=== PATIENT | male | born 1965 | race Caucasian/White ===

== ENCOUNTER → 2017-07-01 | Outpatient (CLI) | payer MEDICARE, OTHER ==
--- NOTE | 2017-07-01 07:52 | CT ---
EXAMINATION TYPE: CT chest w con DATE OF EXAM: 07/01/2017 COMPARISON: 10/09/2013 HISTORY: Chest pains CT DLP: 538 mGycm Automated exposure control for dose reduction was used. CONTRAST: CT scan of the chest is performed with IV Contrast, patient injected with 100 mL of Omnipaque 300. FINDINGS: LUNGS: Noted are scattered predominantly calcified pulmonary nodules compatible with remote granuloma tous disease. No concerning noncalcified nodule seen. No evidence for pulmonary mass. Hyperinflation compatible with COPD. There is no pleural effusion or pneumothorax seen. The tracheobronchial tree i s patent. MEDIASTINUM: There are no greater than 1 cm hilar or mediastinal lymph nodes. No pericardial effusi on is seen. Thoracic aorta is of normal caliber. The heart is not enlarged. UPPER ABDOMEN: No significant abnormality appreciated. OTHER: Nonspecific thyroid nodularity. Consider ultrasound correlation. IMPRESSION: 1. COPD. 2. Remote granulomatous disease.
== END | disposition home or self-care (01) ==
LOC: RADCTMAIN 06:41
PROVIDERS: ATTEND Family Medicine
DX: J44.9 Chronic obstructive pulmonary disease, unspecified (principal); R53.83 Other fatigue; R53.81 Other malaise; R63.4 Abnormal weight loss; Z72.0 Tobacco use
CPT/HCPCS: 71260; Q9967

== ENCOUNTER 2017-08-07 10:11 | Day surgery (SDC) | payer MEDICARE, OTHER ==
[2017-08-06 12:32] VITALS: BMI 25.7
[~2017-08-07 10:11] MED LIST: LACTATED RINGERS 1,000 ML IV SCH
[2017-08-07 10:29] VITALS: RESP 16; TEMP 98
[2017-08-07] MEDS ORDERED: LIDOCAINE 1% 20 ML VIAL (10MG/ML) FOR IV START INTRADERMA ONE (10:33)
[2017-08-07] MEDS ORDERED: PROPOFOL 10 MG/ML 20 ML VIAL IV ONE (10:44)
--- NOTE | 2017-08-07 10:54 | P.PCN ---
Date of Procedure: 08/07/17 Procedure(s) Performed: BRIEF HISTORY: Patient is a 52-year-old, pleasant, white male, scheduled for an upper endoscopy as a part of surveillance of Quick's esophagus. He denies any heartburn, dysphagia or odynophagia. PROCEDURE PERFORMED: Esophagogastroduodenoscopy with biopsy. PREOPERATIVE DIAGNOSIS: Surveillance of Quick's esophagus. IV sedation per anesthesia. PROCEDURE: After informed consent was obtained, the patient was brought into the endoscopy unit. IV sedation was administered by Anesthesia under continuous monitoring. Initially the Olympus GIF-140 video endoscope was inserted into the mouth. Esophagus intubated without any difficulty. It was gradually advanced into the stomach and duodenum and carefully examined. The bulb and the second part of the duodenum appeared normal. The scope at this time was withdrawn to the stomach, adequately insufflated with air, and upon careful examination, mucosa of the antrum, body, cardia and the fundus appeared normal. The scope was then withdrawn into the esophagus. Small hiatal hernia noted. The GE junction was located at 42 cm from the incisors. There was short segment Quick's esophagus extending from 40-42 cm from the incisors and this was biopsied. The rest of the esophagus appeared normal. There were no erosions or ulcerations seen and the patient tolerated the procedure well. IMPRESSION: 1. Short segment Quick's esophagus status post biopsy. 2. Small hiatal hernia. RECOMMENDATIONS: The findings of this examination were discussed with the patient as well as a family. She was advised to follow with the biopsy results. If the biopsy shows Quick's esophagus he can have a repeat upper endoscopy in 2 years.
[2017-08-07 11:30] VITALS: BP 125/73; PULSE 59
== END 2017-08-07 11:59 | disposition home or self-care (01) ==
LOC: ORWHC2ENDO 10:11
PROVIDERS: ATTEND Internal Medicine Gastroenterology
DX: K22.70 Barrett's esophagus without dysplasia (principal); K44.9 Diaphragmatic hernia without obstruction or gangrene; K21.9 Gastro-esophageal reflux disease without esophagitis; E78.5 Hyperlipidemia, unspecified; J44.9 Chronic obstructive pulmonary disease, unspecified; F39 Unspecified mood [affective] disorder; Z79.1 Long term (current) use of non-steroidal anti-inflammatories (NSAID); Z79.899 Other long term (current) drug therapy
CPT/HCPCS: 88305; 43239; J2704

== ENCOUNTER → 2017-08-17 | Outpatient (CLI) | payer MEDICARE, OTHER ==
--- NOTE | 2017-08-18 14:34 | PE ---
EXAMINATION TYPE: PET CT fusion whole body DATE OF EXAM: 08/17/2017 COMPARISON: CT chest 07/01/2017 Prior PET/CT: None HISTORY: Unknown primary TECHNIQUE: Following the intravenous administration of 14.97 mCi of F-18 FDG, whole body images are performed from the skull base to the midthigh. Images are reviewed on the computer in the coronal, a xial, and sagittal planes. Reconstructed rotating images are created on independent workstation and reviewed on the computer. A localization and attenuation correction CT is performed in conjunction with the PET scan. DLP: 445.66 mGycm SCAN: Initial Blood glucose: 92 mg/dL Average Mediastinum SUV: 1.2 Average Liver SUV: 1.7 FINDINGS: NECK: No abnormal uptake THORAX: No abnormal uptake ABDOMEN: No abnormal uptake PELVIS: No abnormal uptake OSSEOUS STRUCTURES: No abnormal uptake LOCALIZATION CT: Few shotty lymph nodes are in the neck. Enlarged lymphadenopathy is not identified. The ascending thoracic aorta at the level of main pulmonary artery is 3.4 cm. The main pulmonary kal ry the bifurcation is 2.5 cm. No suspicious axillary adenopathy is evident. Coronary artery calcifica tion is noted. No enlarged mediastinal adenopathy or hilar adenopathy is evident. Beam hardening sahara fact from the patient's arms the abdomen. Suspicious pelvic or inguinal adenopathy is not identified. There are a few small inguinal lymph nodes present bilaterally. COMPARISON: Tiny calcified granuloma is in the anterior right middle lobe, image 100 series 3. IMPRESSION: 1. No suspicious uptake to suggest neoplasm. 2. No suspicious uptake within the visualized lymph nodes.
== END | disposition home or self-care (01) ==
LOC: RADPETMAIN 09:31
PROVIDERS: ATTEND Family Medicine
DX: R59.0 Localized enlarged lymph nodes (principal)
CPT/HCPCS: 78816; A9552

== ENCOUNTER → 2018-01-09 | Outpatient (CLI) | payer MEDICARE, OTHER ==
--- NOTE | 2018-01-09 15:52 | US ---
EXAMINATION TYPE: US thyroid st tissue head/neck DATE OF EXAM: 01/09/2018 COMPARISON: 08/12/2017 CLINICAL HISTORY: 52-year-old male R59.0 enlarged lymphnodes,E04.1 Thyroid nodule. Technique: Multiple sonographic images of the thyroid gland are obtained. FINDINGS: Right Lobe: 4.6 x 1.7 x 2.3 cm Overall Parenchyma: heterogenous Left Lobe: 4.3 x 1.9 x 1.7 cm Overall Parenchyma: heterogeneous Isthmus Thickness: 0.6 cm NODULES RIGHT: # of nodules measured on right: 1 1. 1.7 X 0.9 x 1.5 cm hypoechoic heterogenous nodule at the lower pole with well-defined margins. T his nodule is wider than tall and shows intranodular vascularity. Prior size: 1.7 x 0.8 x 1.3 cm LEFT: # of nodules measured on left: 2 1. 0.6 X 0.5 x 0.7 cm cystic nodule at the upper pole with well-defined margins. This nodule is wid er than tall and shows no intranodular vascularity. Prior size: 0.6 x 0.5 x 0.6 cm 2. 0.9 X 0.8 x 0.9 cm hypoechoic solid nodule at the lower pole with well-defined margins; interrupt ed peripheral calcification. This nodule is taller than wide and shows intranodular vascularity. Prior size: 0.9 x 0.9 x 0.9 cm ISTHMUS: # of nodules measured in the isthmus: 0 Bilateral neck scanned. Left lymph node appearing lesion seen - 2.3 x 0.9 x 1.1 cm. IMPRESSION: 1. Dominant nodule in the right lower pole measures 1.7 x 1.5 cm versus 1.7 x 1.3 cm, previously. Not significantly changed. 2. A second solid nodule in the left lower pole measures 9 mm, unchanged. 3. Prominent lymph node along the left side of the neck. Cortex is thickened and it is borderline in size (1.1 cm short axis). This can be followed clinically. Area can be re-imaged if any growth is not ed.
== END | disposition home or self-care (01) ==
LOC: RADUSWWP 14:02
PROVIDERS: ATTEND Family Medicine
DX: E04.2 Nontoxic multinodular goiter (principal)
CPT/HCPCS: 76536

== ENCOUNTER → 2018-07-01 | Outpatient (CLI) | payer MEDICARE, OTHER ==
--- NOTE | 2018-07-01 16:31 | US ---
EXAMINATION TYPE: US thyroid st tissue head/neck DATE OF EXAM: 07/01/2018 COMPARISON: Prior thyroid ultrasound January 09, 2018 CLINICAL HISTORY: R59.0 Localized enlarged lymph nodes. GLAND SIZE: Right Lobe: 4.8 x 1.9 x 1.8 cm Overall Parenchyma: homogenous Left Lobe: 5.5 x 1.7 x 1.8 cm Overall Parenchyma: homogeneous Isthmus Thickness: 0.4 cm NODULES RIGHT: # of nodules measured on right: 1 1. 1.5 X 1.2 x 0.8 cm mix nodule at the lower pole with well-defined margins; . This nodule is wid er than tall and shows intranodular vascularity. Prior size: 1.7 x 0.9 x 1.3 cm LEFT: # of nodules measured on left: 2 1. 0.6 X 0.5 x 0.5 cm cyst nodule at the upper pole with well-defined margins; . This nodule is w ider than tall and shows intranodular vascularity. Prior size: 0.6 x 0.5 x 0.7 cm 2. 1.0 X 0.9 x 0.9 cm solid nodule at the lower pole with well-defined margins; calcified rim. This nodule is taller than wide and shows intranodular vascularity. Prior size: 0.9 x 0.8 x 0.9 cm ISTHMUS: # of nodules measured in the isthmus: 0 Bilateral neck scanned, no evidence of lymphadenopathy. Stable bilateral nodules. IMPRESSION: Overall stable findings, stable bilateral nodules without new suspicious nodules identified
== END | disposition home or self-care (01) ==
LOC: RADUSWWP 15:59
PROVIDERS: ATTEND Family Medicine
DX: E04.1 Nontoxic single thyroid nodule (principal)
CPT/HCPCS: 76536

== ENCOUNTER → 2018-09-01 | Outpatient (CLI) | payer MEDICARE, OTHER ==
--- NOTE | 2018-09-02 10:27 | XR ---
EXAMINATION TYPE: XR chest 2V, XR ribs RT DATE OF EXAM: 09/01/2018 COMPARISON: Prior chest 02/27/2018 HISTORY: Rib pain, right lower lateral rib pain TECHNIQUE: Frontal and lateral views of the chest are obtained on 3 images, 4 views of the right rib s. FINDINGS: There is no focal air space opacity, pleural effusion, or pneumothorax seen. The cardiac silhouette size is stable, small. There is hyperinflation suggesting underlying COPD. The lower thora cic vertebral body shows anterior wedge compression as on prior at T12. No evident displaced rib frac ture. IMPRESSION: No acute cardiopulmonary process. Bone scan could be performed for increased sensitivity as indicated.
== END | disposition home or self-care (01) ==
LOC: RADXRMAIN 18:43
PROVIDERS: ATTEND Family Medicine
DX: M95.4 Acquired deformity of chest and rib (principal)
CPT/HCPCS: 71046

== ENCOUNTER → 2019-02-04 | Outpatient (CLI) | payer MEDICARE, OTHER ==
--- NOTE | 2019-02-04 14:26 | XR ---
EXAMINATION TYPE: XR cervical spine comp DATE OF EXAM: 02/04/2019 TECHNIQUE: Frontal, lateral, oblique, swimmers, and open mouth view of the cervical spine are obtaine d. HISTORY: Cervical Radiculopathy M54.12 neck pain. COMPARISON: CT cervical spine September 13, 2014. FINDINGS: The cervical spine is visualized in its entirety from C1 thru the top of T1 level, there i s persistent levoconvex scoliotic curvature centered near cervicothoracic junction without evidence o f acute fracture or dislocation. Exaggerated cervical curvature on lateral images noted. The pre-jenaro tebral soft tissue appears within normal limits. The C1-C2 articulation is within normal limits on t he open mouth view. There is some ossific fusion at C2-C3 level redemonstrated similar to prior. Vert ebral body heights are maintained. Mild disc space narrowing C6-C7 level is redemonstrated. The obli que images are within normal limits. Overlying soft tissue is unremarkable. IMPRESSION: As above, no significant change from recent CT 2013.
== END ==
LOC: RADXRMAIN 13:54
PROVIDERS: ATTEND Physical Medicine & Rehabilitation
DX: M48.02 Spinal stenosis, cervical region (principal); M41.82 Other forms of scoliosis, cervical region
CPT/HCPCS: 72050

== ENCOUNTER → 2019-07-02 | Outpatient (CLI) | payer MEDICARE, OTHER ==
--- NOTE | 2019-07-03 08:05 | US ---
EXAMINATION TYPE: US thyroid st tissue head/neck DATE OF EXAM: 07/02/2019 COMPARISON: 07/01/2018 CLINICAL HISTORY: E04.2 Thyroid Nodule. GLAND SIZE: Right Lobe: 4.4 x 2.1 x 1.5 cm Overall Parenchyma: homogenous Left Lobe: 4.9 x 1.8 x 1.9 cm Overall Parenchyma: homogeneous Isthmus Thickness: 0.5 cm NODULES RIGHT: # of nodules measured on right: 1 1. 1.6 X 0.8 x 1.3 cm hypoechoic solid nodule at the lower pole with well-defined margins. This no dule is wider than tall and shows no intranodular vascularity. Prior size: 1.5 x 1.2 x 0.8 cm LEFT: # of nodules measured on left: 2 1. 0.7 X 0.6 x 0.7 cm anechoic cystic nodule at the upper pole with well-defined margins. This nod ule is wider than tall and shows no intranodular vascularity. Prior size: 0.6 x 0.5 x 0.5 cm 2. 0.8 X 0.8 x 0.8 cm hypoechoic solid nodule at the lower pole with well-defined margins; peripher al calcification. This nodule is taller than wide and shows intranodular vascularity. Prior size: 1.0 x 0.9 x 0.9 cm ISTHMUS: # of nodules measured in the isthmus: 0 Bilateral neck scanned, prominent lymph node noted on left measuring 1.4 x 1.1 x 1.1cm IMPRESSION: 1. Similar size of the bilateral thyroid nodules in comparison to the exam of 2018. 2. Solitary very mildly enlarged lymph node adjacent to the left lobe of the thyroid. This could be r eactive.
== END | disposition home or self-care (01) ==
LOC: RADUSWWP 15:43
PROVIDERS: ATTEND Family Medicine
DX: E04.1 Nontoxic single thyroid nodule (principal); E04.9 Nontoxic goiter, unspecified
CPT/HCPCS: 76536

== ENCOUNTER 2019-09-30 13:56 | Emergency (ER) | payer MEDICARE, OTHER ==
--- NOTE | 2019-09-30 13:54 | US ---
EXAMINATION TYPE: US venous doppler duplex LE LT DATE OF EXAM: 09/30/2019 1:30 PM COMPARISON: NONE CLINICAL HISTORY: M79.605 Pain in left leg. Left leg pain, left ankle edema for 2 days SIDE PERFORMED: left TECHNIQUE: The lower extremity deep venous system is examined utilizing real time linear array sonog alexandre with graded compression, doppler sonography and color-flow sonography. VESSELS IMAGED: External Iliac Vein (EIV) Common Femoral Vein Deep Femoral Vein Greater Saphenous Vein * Femoral Vein Popliteal Vein Small Saphenous Vein * Proximal Calf Veins (* superficial vessels) Grayscale, color doppler, spectral doppler imaging performed of the deep veins of the left lower extr emity Left Leg: +Positive for DVT left popliteal vein IMPRESSION: Positive acute deep venous thrombosis of the left popliteal vein. Certified Orthoptist note from [facility] -spoke with regarding positive results, patient escorted to the ER
[2019-09-30 14:04] VITALS: BP 117/73; PULSE 50; RESP 18; TEMP 97.7
[2019-09-30] MEDS ORDERED: APIXABAN 5 MG TAB PO STA (14:15)
--- NOTE | 2019-09-30 14:15 | ED ---
Extremity Problem HPI - General Chief complaint: Extremity Problem,Nontraumatic Stated complaint: Blood Clot-sent by US Source: patient Mode of arrival: wheelchair Limitations: no limitations - History of Present Illness Initial comments: 54-year-old male presenting for positive outpatient ultrasound for DVT. Patient states that approximately 2-3 days ago he noticed swelling of the left leg and comparison the right and a slight discomfort of the left posterior knee. Patient states which is primary care provider where he was sent for an ultrasound to rule out deep venous thrombosis which returned positive. Patient was sent over to the emergency department for further evaluation directly from ultrasound. Patient denies known history of cancer although he is currently b eing worked up for lymphadenopathy. Patient is every day smoker. He denies any recent surgeries he denies chest pain shortness of breath. Patient denies any pain with deep inspiration denies any recent travel hospitalizations history of DVT or pulmonary embolism's, familial clotting disorders or personal history, recent fractures exogenous hormone use. Patient denies use of anticoagulation therapy. Patient denies any recent melanotic stools or bright red blood per rectum. Patient denies any other complaints. He states aside from the swelling/slight left leg discomfort he feels like his usual self. Upon arrival patient oxygenating well on RA, HR within acceptable limits. No tachycardia. - Related Data Home Medications Medication Instructions Recorded Confirmed ALPRAZolam [Xanax] 1 mg PO TID PRN 09/13/14 09/30/19 Simvastatin [Zocor] 40 mg PO QAM 09/13/14 09/30/19 HYDROcodone/APAP 10-325MG [[place] 1 tab PO QID PRN 09/03/16 09/30/19 10-325] Ibuprofen [Motrin] 800 mg PO TID PRN 08/06/17 09/30/19 FLUoxetine HCL [PROzac] 20 mg PO TID 10/17/17 09/30/19 Omeprazole [PriLOSEC] 20 mg PO AC-BRKFST 10/17/17 09/30/19 QUEtiapine [SEROquel] 200 mg PO HS 09/30/19 09/30/19 lamoTRIgine [LaMICtal] 100 mg PO BID 09/30/19 09/30/19 Previous Rx's Medication Instructions Recorded Apixaban [Eliquis Starter Pack 0 mg PO DIRECTED 30 Days #1 pack 09/30/19 (for VTE)] Allergies Allergy/AdvReac Type Severity Reaction Status Date / Time No Known Allergies Allergy Verified 09/30/19 14:01 Review of Systems ROS Statement: Those systems with pertinent positive or pertinent negative responses have been documented in the HPI. ROS Other: All systems not noted in ROS Statement are negative. Past Medical History Past Medical History: Chest Pain / Angina, COPD, GERD/Reflux, Hyperlipidemia, Osteoarthritis (OA) Additional Past Medical History / Comment(s): Hx Quick's Esophagus. , Back and knee pain, States slow heart rate and Short of breath with exertion-may need pacemaker in the future-having testing done by Dr. Rai (Cardiology)., States lump behind right ear that is painful and occasional tingling right fingers. History of Any Multi-Drug Resistant Organisms: None Reported Past Surgical History: Orthopedic Surgery Additional Past Surgical History / Comment(s): RIGHT KNEE ARTHROSCOPY, LEFT KNEE SURGERY X2, COLONOSCOPY, EGD. Past Anesthesia/Blood Transfusion Reactions: Previous Problems w/ Anesthesia Additional Past Anesthesia/Blood Transfusion Reaction / Comment(s): WOKE UP DURING SURGERY., CLAUSTROPHOBIC Past Psychological History: Anxiety, Bipolar, Depression Smoking Status: Current every day smoker Past Alcohol Use History: None Reported Past Drug Use History: None Reported - Past Family History Mother Family Medical History: Cancer Additional Family Medical History / Comment(s): LUNG AND BREAST CANCER General Exam - General Exam Comments Initial Comments: General: The patient is awake and alert, in no distress, and does not appear a cutely ill. Eye: Pupils are equal, round and reactive to light, extra-ocular movements are intact. No nystagmus. There is normal conjunctiva bilaterally. No signs of icterus. Ears, nose, mouth and throat: There are moist mucous membranes and no oral lesions. Neck: The neck is supple, there is no tenderness or JVD. Cardiovascular: There is a regular rate and rhythm. No murmur, rub or gallop is appreciated. Respiratory: Lungs are clear to auscultation, respirations are non-labored, breath sounds are equal. No wheezes, stridor, rales, or rhonchi. Musculoskeletal: Normal ROM, no tenderness. Strength 5/5. Sensation intact. DP pulses equal bilaterally 2+. Neurological: A&O x 3. CN II-XII intact grossly, There are no obvious motor or sensory deficits. Coordination appears grossly intact. Speech is normal. Skin: Skin is warm and dry and no rashes or lesions are noted. Left LE swelling, nonpitting of the left leg in comparisoin with the right, tenderness of the popliteal fossa, no pain out of proportion, bruising or pallor. Patient able to weight bear. No swellin gof the right LE. No UE swelling. Psychiatric: Cooperative, appropriate mood & affect, normal judgment. Limitations: no limitations Course Vital Signs 09/30/19 13:59 Temperature 97.7 F Pulse Rate 50 L Respiratory 18 Rate Blood Pressure 117/73 O2 Sat by Pulse 98 Oximetry Medical Decision Making - Medical Decision Making 54yo male sent from ultrasound for deep venous thrombosis. There is a popliteal vein thrombosis., There is no evidence of complicating process. No CP/SOB, pain out of proportion, extreme swelling or pallor. Patient has no additional complaints, discussed case with Dr. Paris at this time we feel patient is stable for discharge with initiation of novel anticoagulation therapy. I contacted patient PCP Dr. Mccurdy who is agreeable with discharge and outpatient f/u tomorrow for further evaluation into causes including r/o malignancy. Return parameters, risk of bleeding and signs PE/worsening DVT were discussed at length with patient. In addition I discussed the importance of adherence to anticoagulation regimen. Patient verbalized understanding he is agreeable prefers discharge at this time. Disposition Clinical Impression: Left leg DVT, Left leg swelling Disposition: HOME SELF-CARE Condition: Good Instructions (If sedation given, give patient instructions): Deep Vein Thrombosis (ED) Additional Instructions: Please use medication as discussed. Please follow-up with family doctor in the next 2 days, recommend thorough evaluation to ensure cause is not malignancy, possible hematology follow-up if felt appropriate from primary care provider. Please return to emergency room if the symptoms increase or worsen or for any other concerns. Prescriptions: Apixaban [Eliquis Starter Pack (for VTE)] 0 mg PO DIRECTED 30 Days #1 pack Is patient prescribed a controlled substance at d/c from ED?: No Referrals: Di Mccurdy MD [Primary Care Provider] - 1-2 days Time of Disposition: 14:17
== END 2019-09-30 14:36 | disposition home or self-care (01) ==
LOC: EC 13:56
DX: I82.432 Acute embolism and thrombosis of left popliteal vein (principal); R59.0 Localized enlarged lymph nodes; K21.9 Gastro-esophageal reflux disease without esophagitis; E78.5 Hyperlipidemia, unspecified; M19.90 Unspecified osteoarthritis, unspecified site; F31.9 Bipolar disorder, unspecified; F41.9 Anxiety disorder, unspecified; F17.200 Nicotine dependence, unspecified, uncomplicated; Z79.1 Long term (current) use of non-steroidal anti-inflammatories (NSAID); Z79.899 Other long term (current) drug therapy
CPT/HCPCS: 99283

== ENCOUNTER → 2019-10-02 | Outpatient (CLI) | payer MEDICARE, OTHER ==
--- NOTE | 2019-10-02 09:35 | US ---
EXAMINATION TYPE: US thyroid st tissue head/neck DATE OF EXAM: 10/02/2019 COMPARISON: Thyroid ultrasound dated 07/02/2019 CLINICAL HISTORY: R59.0 Localized enlarged lymph nodes. Enlarged lymph node, follow up from prior ult rasound 07/06 TECHNIQUE/FINDINGS: Multiple lymph nodes noted bilateral neck. Largest on left = 2.4 x 1.2 x 1.1cm and largest on right = 3.6 x 1.0 x 1.6cm. The largest on the left on the prior examination of 07/02/2019 measured 1.4 x 1.1 x 1.1 cm. IMPRESSION: Bilateral cervical lymph nodes although are only mildly enlarged in short axis have demo nstrated interval enlargement from the prior. CT neck w con could be considered for further evaluatio n or possible consideration for fine-needle aspiration.
== END | disposition home or self-care (01) ==
LOC: RADUSWWP 08:49
PROVIDERS: ATTEND Nurse Practitioner
DX: R59.0 Localized enlarged lymph nodes (principal)
CPT/HCPCS: 76536

== ENCOUNTER → 2019-10-09 | Outpatient (CLI) | payer MEDICARE, OTHER ==
--- NOTE | 2019-10-11 18:35 | CT ---
EXAMINATION TYPE: CT soft tissue neck w con DATE OF EXAM: 10/09/2019 COMPARISON: Correlation ultrasound 10/02/2019 and 07/02/2019 HISTORY: 54-year-old male thyroid nodule TECHNIQUE: Contiguous axial scanning of the soft tissues of the neck performed with IV Contrast, michael ent injected with 100 mL of Isovue 300. Coronal/sagittal reconstructions performed. CT DLP: 468.70 mGycm Automated exposure control for dose reduction was used. FINDINGS: Upper thorax reported separately. With attention to the thyroid gland, there is a 1.5 cm hypodense nodule within the right lobe (seen a s a mixed, spongiform nodule measuring 1.7 cm on the 07/02/2019 ultrasound). A peripherally calcified 9 mm nodule in the left lobe was present back in 2013 suggesting a benign etiology. The submandibular glands are satisfactory. Parotid glands are atrophic. Visualized intracranial structures show hypoplastic A1 segment left anterior cerebral artery. Visuali zed orbits and globes and mastoid air cells are clear. Trace mucosal thickening posteromedial left ma xillary sinus. Leftward nasal septal deviation. Nasopharynx is clear. Nodular hypertrophy of the lingual tonsils. Otherwise, the oropharynx is clear. Prevertebral soft tissues and epiglottis appear within normal limits. Glottic and subglottic structures as well as the tracheal column are clear. There is a mildly enlarged right upper cervical lymph node, axial image 61 and coronal image 33 measu ring 1.5 cm short axis. Borderline to mildly enlarged 1.1 cm short axis lower left cervical lymph node at the level of the th yroid gland. Otherwise, scattered nonenlarged cervical lymph nodes are present on both sides of the neck. Levoconvex scoliosis centered along the cervicothoracic junction. IMPRESSION: 1. A 1.5 CM HYPODENSE NODULE IN THE RIGHT LOBE LIKELY CORRESPONDS TO THE 1.7 CM MIXED NODULE SEEN ON 07/02/2019 ULTRASOUND. A PERIPHERALLY CALCIFIED 9 MM NODULE IN THE LEFT LOBE WAS PRESENT BACK IN 2013 COMPATIBLE WITH A BENIGN ETIOLOGY. 2. A MILDLY ENLARGED 1.5 CM SHORT AXIS RIGHT UPPER CERVICAL LYMPH NODE. 3. ADDITIONAL BORDERLINE TO MILDLY ENLARGED 1.1 CM SHORT AXIS LOWER LEFT CERVICAL LYMPH NODE AT THE L EVEL OF THE THYROID GLAND. FINDINGS MAY BE REACTIVE/POST INFLAMMATORY. CONSIDER ULTRASOUND TO ENSURE STABILITY/RESOLUTION.
--- NOTE | 2019-10-11 18:50 | CT ---
EXAMINATION TYPE: CT ChestAbdPelvis w con DATE OF EXAM: 10/09/2019 COMPARISON: 10/17/2017 HISTORY: 54-year-old male Unprovoked DVT LT knee TECHNIQUE: Contiguous axial scanning of the chest, abdomen, and pelvis performed with IV Contrast, pa tient injected with 100 mL of Isovue 300. Delayed images through the kidneys were obtained. Coronal/s agittal reconstructions performed. CT DLP: 1547 mGycm Automated exposure control for dose reduction was used. FINDINGS: CHEST: Hypodense nodule right lobe of the thyroid gland was present back in 2017 compatible with a benign et iology. Peripherally calcified nodule in the left lobe was also present at that time compatible with a benign etiology. Lower left cervical lymph node measures 1.2 cm, unchanged from 2017. Heart normal size without pericardial effusion. Mild coronary vessel calcifications. Aorta normal caliber with conventional arch vessel branching anatomy. No thoracic lymphadenopathy by CT size criteria. Evaluation of the lungs show stable calcified granuloma anterior right midlung, stable 5 mm anterior left midlung pulmonary nodule, axial image 26, stable 4 mm lateral left midlung pulmonary nodule, axi al image 28 Clinical calcified granulomatous in the lung bases, axial image 53, and a noncalcified 6 mm medial ri ght basilar pulmonary nodule, axial image 51, all stable from 10/17/2017 compatible with a benign ramos ology. No consolidation or pleural effusion. ABDOMEN: No focal liver lesion. Mild prominence of the bile duct is unchanged from 2017. All bladder, adrenal glands, kidneys with bilateral extrarenal pelves, and spleen as well as pancreas all appear within normal limits. No dilated small bowel, free fluid, or free air. No mesenteric or retroperitoneal lymphadenopathy. Oral contrast has progressed into the distal transverse colon. Moderate stool in the right side of th e colon. Additional moderate stool in the sigmoid colon. No pericolonic inflammatory change. PELVIS: Bladder is urine distended measuring up to 13.7 cm. Prostate gland measures 5.0 cm wide. Scattered pr ominent bilateral inguinal lymph nodes measure up to 1.1 cm short axis, not significantly changed fro m 2017. No progressive pelvic lymphadenopathy. BONES: Mild degenerative changes at the hips. Facet arthropathy with left-sided L5 pars defect and grade 1 a nterolisthesis L5-S1. Mild anterior wedging at T12 is unchanged from 2017. Accentuated mid thoracic k yphosis. Increased AP chest dimension. No osseous destructive process. IMPRESSION: 1. THE 2 THYROID NODULES ARE STABLE BACK TO 10/17/2017 SUGGESTING BENIGN ETIOLOGY. 2. PROMINENT LEFT LOWER CERVICAL LYMPH NODE MEASURED 1.2 CM IS ALSO STABLE. 3. NUMEROUS BILATERAL PULMONARY NODULES MEASURING UP TO 6 MM, ALL STABLE BACK TO 2017. SOME ARE CALCI FIED SUGGESTING PRIOR GRANULOMATOUS DISEASE. 4. PROMINENT BUT NONENLARGED BILATERAL INGUINAL LYMPH NODES MEASURING UP TO 1.1 CM SHORT AXIS, STABLE BACK TO 10/17/2017. 5. LEFT-SIDED L5 PARS DEFECT WITH GRADE 1 ANTEROLISTHESIS OF L5-S1.
== END | disposition home or self-care (01) ==
LOC: RADCTMAIN 14:28
PROVIDERS: ATTEND Family Medicine
DX: E04.1 Nontoxic single thyroid nodule (principal); R59.0 Localized enlarged lymph nodes; R91.8 Other nonspecific abnormal finding of lung field
CPT/HCPCS: 70491; 71260; 74177; Q9967

== ENCOUNTER 2019-12-15 12:20 | Day surgery (SDC) | payer MEDICARE, OTHER ==
[2019-12-15 13:07] VITALS: RESP 16; TEMP 98.1
[2019-12-15] MEDS ORDERED: ALPRAZolam 0.5 MG TAB PO STA (13:29)
[2019-12-15 14:52] VITALS: BP 112/73; PULSE 60
--- NOTE | 2019-12-15 16:14 | US ---
EXAMINATION TYPE: US biopsy lymph node DATE OF EXAM: 12/15/2019 HISTORY: Left neck adenopathy. FINDINGS: Maximal barrier technique was utilized. The skin overlying a suitable path to the patient' s left supraclavicular node was localized with ultrasound and the overlying skin prepped and draped. Ultrasound was utilized with sterile technique. Lidocaine was used for local anesthesia. A skin ni ck was made with a scalpel. An 20-gauge needle was advanced under direct ultrasound guidance and cor e specimen obtained of the left neck node, additional pass was made using similar technique. Specime n submitted in formalin to Pathology. Following the procedure, hemostasis achieved and the patient i s discharged in stable condition without complication. IMPRESSION:STATUS POST ULTRASOUND GUIDED CORE BIOPSY LEFT SUPRACLAVICULAR NODE, PATHOLOGY IS PENDING. THIS PROCEDURE IS PERFORMED BY THE UNDERSIGNED.
== END 2019-12-15 14:45 | disposition home or self-care (01) ==
LOC: RADPROMAIN 12:20
PROVIDERS: ATTEND Internal Medicine Hematology & Oncology
DX: R59.0 Localized enlarged lymph nodes (principal)
CPT/HCPCS: 38505; 76942; 88305; 88342

== ENCOUNTER 2019-12-16 17:25 | Observation (INO) | payer MEDICARE, OTHER ==
[2019-12-16] MEDS ORDERED: NITROGLYCERIN OINT 1 INCH/GM PACKET TOPICAL STA (18:03)
[2019-12-16] MEDS ORDERED: SODIUM CHLORIDE 0.9% 500 ML 500 ML IV STA (18:03)
[2019-12-16] MEDS ORDERED: ASPIRIN 81 MG PO STA (18:03)
[2019-12-16] MEDS ORDERED: KETOROLAC 60 MG/2 ML VIAL IVP STA (18:04)
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
--- NOTE | 2019-12-16 18:48 | XR ---
EXAMINATION TYPE: XR chest 2V DATE OF EXAM: 12/16/2019 COMPARISON: 09/01/2018 HISTORY: Rib pain TECHNIQUE: 2 views FINDINGS: Heart is normal. Lungs are clear of infiltrate. There is no pleural effusion. There are no hilar masses. There are chest leads. There is mild pulmonary hyperinflation. IMPRESSION: No active cardiopulmonary disease. There is probably COPD. No change compared to old exam .
[2019-12-16 19:17] LABS: Basophils # (A) 0.2 k/uL (0-0.2); Basophils % (A) 2 %; Eosinophils # (A) 0.1 k/uL (0-0.7); Eosinophils % (A) 2 %; HCT 48.2 % (39.0-53.0); HGB 15.6 gm/dL (13.0-17.5); Lymphocytes # (A) 2.1 k/uL (1.0-4.8); Lymphocytes % (A) 29 %; MCH 30.3 pg (25.0-35.0); MCHC 32.3 g/dL (31.0-37.0); MCV 93.7 fL (80.0-100.0); Mean Platelet Volume 7.2; Monocytes # (A) 0.4 k/uL (0-1.0); Monocytes % (A) 5 %; Neutrophils # (A) 4.4 k/uL (1.3-7.7); Neutrophils % (A) 61 %; Platelet Count 232 k/uL (150-450); RBC 5.14 m/uL (4.30-5.90); RDW 12.8 % (11.5-15.5); WBC 7.2 k/uL (3.8-10.6)
[2019-12-16 19:30] LABS: Partial Thromboplastin Time 23.2 sec (22.0-30.0); Prothrombin Time 10.5 sec (9.0-12.0)
[2019-12-16 19:41] LABS: ALT 15 U/L (4-49); AST 18 U/L (17-59); African American GFR (CKD) >90 (>60 ml/min/1.73 sqM); Albumin 4.2 g/dL (3.5-5.0); Alkaline Phosphatase 46 U/L (38-126); Anion Gap 6 mmol/L; Blood Urea Nitrogen 15 mg/dL (9-20); Calcium 9.2 mg/dL (8.4-10.2); Carbon Dioxide 27 mmol/L (22-30); Chloride 107 mmol/L (98-107); Glucose 74 mg/dL (74-99); Magnesium 2.1 mg/dL (1.6-2.3); Non-African American GFR(CKD) >90 (>60 ml/min/1.73 sqM); Potassium 4.2 mmol/L (3.5-5.1); Sodium 140 mmol/L (137-145); Total Bilirubin 0.5 mg/dL (0.2-1.3); Total Protein 6.9 g/dL (6.3-8.2)
[2019-12-16] MEDS ORDERED: NITROGLYCERIN SL TABS 0.4 MG TAB SUBLINGUAL PRN (20:16)
[2019-12-16] MEDS ORDERED: HEPARIN SODIUM,PORCINE 5,000 UNIT/ML 1 ML VIAL IV ONE (20:21)
[2019-12-16] MEDS ORDERED: HEPARIN SOD,PORK IN 0.45% NACL 25,000 UNIT in 0.45% NACL 1 250ML.BAG IV SCH (20:30)
[2019-12-16] MEDS ORDERED: PANTOPRAZOLE 40 MG/10 ML VIAL IVP SCH (21:00)
[2019-12-16] MEDS ORDERED: HEPARIN SODIUM,PORCINE 5,000 UNIT/ML 1 ML VIAL IV PRN (21:27)
[2019-12-16] MEDS ORDERED: ALPRAZolam 1 MG TAB PO PRN (22:57)
[2019-12-16] MEDS ORDERED: IBUPROFEN 800 MG TAB PO PRN (22:57)
[2019-12-16] MEDS: GABAPENTIN 400 MG CAP PO SCH (23:38)
[2019-12-16] MEDS: NICOTINE 21MG/24HR PATCH TRANSDERM SCH (23:38)
[2019-12-16] MEDS: HYDROcodone/APAP 10-325MG 1 EACH TAB PO PRN (23:38)
[2019-12-17] MEDS: NITROGLYCERIN OINT 1 INCH/GM PACKET TOPICAL SCH ×2 (00:19→04:25)
[2019-12-17 04:18] LABS: Cholesterol 151 mg/dL (<200); HDL Cholesterol 42 mg/dL (40-60); LDL Cholesterol,Calculated 95 mg/dL (0-99); Triglycerides 69 mg/dL (<150)
[2019-12-17] MEDS: HYDROcodone/APAP 10-325MG 1 EACH TAB PO PRN ×2 (04:38→10:31)
[2019-12-17 07:43] VITALS: TEMP 98
[2019-12-17] MEDS: IPRATROPIUM 0.5 MG/2.5 ML NEBU INHALATION SCH ×2 (07:47→12:18)
[2019-12-17] MEDS ORDERED: SYMBICORT 80-4.5 MCG INHALER INHALATION SCH ×2 (08:00)
[2019-12-17] MEDS: GABAPENTIN 400 MG CAP PO SCH (08:08)
[2019-12-17] MEDS: NICOTINE 21MG/24HR PATCH TRANSDERM SCH (08:09)
[2019-12-17 08:15] VITALS: RESP 18
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
[2019-12-17] MEDS ORDERED: ASPIRIN 325 MG TAB PO SCH (09:00)
[2019-12-17] MEDS ORDERED: buPROPion SR 100 MG TABLET.ER PO SCH (09:00)
[2019-12-17] MEDS ORDERED: lamoTRIgine 100 MG TAB PO SCH (09:00)
[2019-12-17] MEDS ORDERED: FLUoxetine HCL 20 MG CAP PO SCH (09:00)
[2019-12-17] MEDS ORDERED: APIXABAN 5 MG TAB PO SCH ×2 (09:00→21:00)
[2019-12-17 09:23] VITALS: PULSE 50
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
[2019-12-17 11:15] VITALS: BP 117/68
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
== END 2019-12-17 15:15 | disposition home or self-care (01) ==
LOC: EC 17:25 → 1SOBS 20:16
PROVIDERS: ADMIT Internal Medicine; ATTEND Internal Medicine
DX: R07.89 Other chest pain (principal); F17.210 Nicotine dependence, cigarettes, uncomplicated; Z86.718 Personal history of other venous thrombosis and embolism; E78.5 Hyperlipidemia, unspecified; K21.9 Gastro-esophageal reflux disease without esophagitis; F41.9 Anxiety disorder, unspecified; F31.9 Bipolar disorder, unspecified; Y04.0XXA Assault by unarmed brawl or fight, initial encounter; K22.70 Barrett's esophagus without dysplasia; J44.9 Chronic obstructive pulmonary disease, unspecified; E78.00 Pure hypercholesterolemia, unspecified; M19.90 Unspecified osteoarthritis, unspecified site; F12.90 Cannabis use, unspecified, uncomplicated; I25.2 Old myocardial infarction; R20.2 Paresthesia of skin; I20.0 Unstable angina; F60.9 Personality disorder, unspecified; Z80.3 Family history of malignant neoplasm of breast; Z82.49 Family history of ischemic heart disease and other diseases of the circulatory system; Z79.899 Other long term (current) drug therapy; Z79.01 Long term (current) use of anticoagulants; Z79.891 Long term (current) use of opiate analgesic; Z79.51 Long term (current) use of inhaled steroids; Z91.048 Other nonmedicinal substance allergy status; Z79.1 Long term (current) use of non-steroidal anti-inflammatories (NSAID)
CPT/HCPCS: 93005 ×2; 96366 ×2; 96376 ×2; 96361; 96365; 96375; 99291; 36415; 94640; 94760; 93306; 85379; 80061; 80053; 83735; 84484 ×2; 85025; 85610; 85730 ×2; 71101; 71046; G0378 ×2; S4990 ×2; J1644 ×3; J1885

== ENCOUNTER 2020-04-28 12:52 | Emergency (ER) | payer MEDICARE, OTHER ==
[2020-04-28] MEDS ORDERED: MORPHINE SULFATE 4 MG/ML SYRINGE IVP STA ×2 (13:03→13:37)
--- NOTE | 2020-04-28 13:07 | ED ---
Lower Extremity Injury HPI - General Chief Complaint: Extremity Injury, Lower Stated Complaint: Knee injury Time Seen by Provider: 04/28/20 13:00 Source: patient, EMS Mode of arrival: EMS Limitations: no limitations - History of Present Illness Initial Comments: Patient is a 55-year-old male presenting to the emergency department with a chief complaint of of left knee injury. Patient presents to the ED via EMS. Patient was given fentanyl on board the ambulance. Patient states he was attempting to remove a post hammer out of a truck, when it slipped out of his hand and may direct contact the medial aspect of his left knee. Patient states previous injury to the left knee which include patellar dislocation and surgeries. States his typically is sitting high. States there is significant amount of swelling and pain is 10/10. States it feels like a burning sensation that is occasionally sharp. States he is not able to ambulate or bend the knee. Denies any numbness or tingling. - Related Data Home Medications Medication Instructions Recorded Confirmed ALPRAZolam [Xanax] 1 mg PO TID PRN 09/13/14 12/16/19 HYDROcodone/APAP 10-325MG [[place] 1 tab PO QID 09/03/16 12/16/19 10-325] Ibuprofen [Motrin] 800 mg PO TID PRN 08/06/17 12/16/19 FLUoxetine HCL [PROzac] 20 mg PO TID 10/17/17 12/16/19 lamoTRIgine [LaMICtal] 100 mg PO BID 09/30/19 12/16/19 Apixaban [Eliquis] 5 mg PO BID 12/16/19 12/16/19 Fluticasone/Umeclidin/Vilanter 1 puff INHALATION RT-DAILY 12/16/19 12/16/19 [Trelegy Ellipta 100-62.5-25] Gabapentin 800 mg PO TID 12/16/19 12/16/19 buPROPion HCL [Wellbutrin SR] 200 mg PO BID 12/16/19 12/16/19 Previous Rx's Medication Instructions Recorded Nicotine 21Mg/24Hr Patch [Habitrol] 1 patch TRANSDERM DAILY 30 Days 12/17/19 #30 patch Allergies Allergy/AdvReac Type Severity Reaction Status Date / Time adhesive tape Allergy Rash/Hives Verified 12/16/19 22:12 Review of Systems ROS Statement: Those systems with pertinent positive or pertinent negative responses have been documented in the HPI. ROS Other: All systems not noted in ROS Statement are negative. Past Medical History Past Medical History: Chest Pain / Angina, COPD, Deep Vein Thrombosis (DVT), GERD/Reflux, Hyperlipidemia, Osteoarthritis (OA) Additional Past Medical History / Comment(s): Hx Quick's Esophagus. , Back and knee pain, States slow heart rate and Short of breath with exertion-may need pacemaker in the future-having testing done by Dr. Rai (Cardiology)., States lump behind right ear that is painful and occasional tingling right fingers, DVT behind left knee History of Any Multi-Drug Resistant Organisms: None Reported Past Surgical History: Orthopedic Surgery Additional Past Surgical History / Comment(s): RIGHT KNEE ARTHROSCOPY, LEFT KNEE SURGERY X2, COLONOSCOPY, EGD. 12/15/19 left neck biopsy to rule out cancer Past Anesthesia/Blood Transfusion Reactions: Previous Problems w/ Anesthesia Additional Past Anesthesia/Blood Transfusion Reaction / Comment(s): WOKE UP DURING SURGERY, CLAUSTROPHOBIC. no previous blood transfusion Past Psychological History: Anxiety, Bipolar, Depression Smoking Status: Current every day smoker Past Alcohol Use History: Rare Past Drug Use History: Marijuana - Past Family History Mother Family Medical History: Cancer Additional Family Medical History / Comment(s): LUNG AND BREAST CANCER General Exam Limitations: no limitations General appearance: alert, in distress Head exam: Present: atraumatic, normocephalic, normal inspection Eye exam: Present: normal appearance, PERRL, EOMI Pupils: Present: normal accommodation ENT exam: Present: normal exam, normal oropharynx, mucous membranes moist Neck exam: Present: normal inspection, full ROM Respiratory exam: Present: normal lung sounds bilaterally. Absent: respiratory distress, wheezes, rales Cardiovascular Exam: Present: regular rate, normal rhythm, normal heart sounds. Absent: bradycardia, tachycardia Extremities exam: Present: tenderness (Tenderness to the left knee), normal capillary refill, joint swelling (Left knee), other (+2 dorsalis pedis and posterior tibialis bilaterally.). Absent: normal inspection (Moderate amount of swelling noted on the medial aspect the left knee along with an abrasion. There appears to be bony deformity), full ROM, pedal edema, calf tenderness Back exam: Present: normal inspection, full ROM. Absent: tenderness, CVA tenderness (R), CVA tenderness (L) Neurological exam: Present: alert, oriented X3 Psychiatric exam: Present: normal affect, normal mood Skin exam: Present: warm, dry, intact, normal color Course Vital Signs 04/28/20 04/28/20 12:59 15:02 Temperature 97.8 F 98.3 F Pulse Rate 56 L 45 L Respiratory 21 16 Rate Blood Pressure 113/70 102/65 O2 Sat by Pulse 100 99 Oximetry Medical Decision Making - Medical Decision Making Patient is a 55-year-old male presenting to emergency Department with a chief complaint of left knee pain. On exam patient appears to have a deformity to left knee secondary to trauma. There is significant amount of swelling in the anterior medial aspect of the left knee. X-ray reveals a high riding patella. Soft tissue swelling noted. Patient was given analgesia in the ED and in the ambulance. Patient is neurovascularly intact. CT was obtained showing some continuous intramuscular hematoma. Hemarthrosis also noted. Patellar tendon injury cannot be fully excluded. I spoke with raine jefferson who reviewed the images and advised for outpatient follow-up. He recommended a knee immobilizer. Patient given prescription for crutches. Return parameters were thoroughly discussed the patient is in standing and agreeable. Advised to follow-up with e commerce specialist. Case discussed with physician. Disposition Clinical Impression: Swelling of left knee joint, Hemarthrosis involving knee joint, Hematoma of left knee region Disposition: HOME SELF-CARE Condition: Good Instructions (If sedation given, give patient instructions): Knee Pain (ED) Additional Instructions: Follow-up with e commerce specialist. Apply ice compress an alternate between Tylenol Motrin for pain control. Keep the leg elevated. Is patient prescribed a controlled substance at d/c from ED?: No Referrals: Di Mccurdy MD [Primary Care Provider] - 1-2 days Akil Graham MD [STAFF PHYSICIAN] - 1-2 days Time of Disposition: 15:44
--- NOTE | 2020-04-28 13:29 | XR ---
EXAMINATION TYPE: XR knee complete LT DATE OF EXAM: 04/28/2020 COMPARISON: NONE HISTORY: Pain TECHNIQUE: Three views are submitted. FINDINGS: Joint spaces are preserved. Osseous structures are intact. No acute fracture seen. Diffuse severe subcutaneous edema. Patellas high riding in position. There is a large amount of fluid collection the suprapatellar bursa. Tendinous injury not excluded. Postsurgical change of the tibia with severe art hropathy of the knee joint compatible with osteoarthritis. IMPRESSION: 1. No acute fracture or dislocation. 2. Severe soft tissue edema as well as a suprapatellar bursal fluid collection. Patellar is high ridi ng in position correlate for tenderness injury. Recommend follow-up MRI.
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
[2020-04-28 15:04] VITALS: BP 102/65; PULSE 45; RESP 16; TEMP 98.3
== END 2020-04-28 16:00 | disposition home or self-care (01) ==
LOC: EC 12:52
DX: M25.062 Hemarthrosis, left knee (principal); S80.02XA Contusion of left knee, initial encounter; M19.90 Unspecified osteoarthritis, unspecified site; F41.9 Anxiety disorder, unspecified; F31.9 Bipolar disorder, unspecified; F17.200 Nicotine dependence, unspecified, uncomplicated; Z79.899 Other long term (current) drug therapy; Z79.891 Long term (current) use of opiate analgesic; Z79.01 Long term (current) use of anticoagulants; Z79.51 Long term (current) use of inhaled steroids; Z91.048 Other nonmedicinal substance allergy status; Z86.718 Personal history of other venous thrombosis and embolism; W22.8XXA Striking against or struck by other objects, initial encounter
CPT/HCPCS: 96374; 96376; 99284; 73562; 73700; L1830 ×2; J2270

== ENCOUNTER → 2020-05-03 | Outpatient (CLI) | payer MEDICARE, OTHER ==
--- NOTE | 2020-05-04 08:45 | MR ---
EXAMINATION TYPE: MR knee LT wo con DATE OF EXAM: 05/03/2020 COMPARISON: Correlation CT and radiograph 04/28/2020 HISTORY: 55-year-old male M66.262, Recurrent left patellar tendon rupture TECHNIQUE: Multiplanar, multisequence imaging of the left knee is performed without IV contrast. FINDINGS: Metal artifact from the surgical kashif at the tibial tuberosity. Redemonstrated marked patella master. Interstitial tearing is present throughout a thickened and hetero geneous patellar tendon but no frankly retracted stump is identified. There is partial obscuration of the distal insertion due to the metal artifacts. Some increased signal within the intact quadriceps insertion suggesting contusion or tendinosis. ACL, PCL, MCL, and LCL complex appear intact. Inner margin radial tear body of the lateral meniscus. Mild to moderate diffuse thinning of lateral c ompartment articular cartilage volume with focal moderate thickness cartilage loss along the mid weig htbearing aspect of the left condyle. Oblique tear extending through the posterior horn of the medial meniscus. The body of the medial meni scus is small. Heart irregular cartilage loss throughout the medial compartment. Mild thinning of patellar articular cartilage with some scattered superficial irregularity. Edematous change within the quadriceps musculature. Large irregular heterogeneous collections within the subcutaneous adipose extending into the medial quadriceps musculature measuring at least 7.6 x 5. 7 cm. The collection shows some intrinsic T1 hyperintensity suggesting hematomas. There is underlying extensive bone bruise to the medial femoral metadiaphysis. Marked generalized soft tissue swelling and edema throughout. Heterogeneous moderate effusion is pres ent. Small fluid/fluid level is also demonstrated along the high lateral gutter. Normal popliteal artery anatomy. No suspicious bone marrow replacement. IMPRESSION: 1. Marked patella master with prior surgical stapling at the tibial tuberosity. There is thickening and heterogeneity diffusely throughout the patellar tendon suggesting contusions and multiple interstiti al tears throughout. However, there seems to be continuous fibers on sagittal series and no retracted stump to support patellar tendon rupture. Further clinical correlation recommended given the pronoun silver patella master. Correlate with the appearance on pre-injury radiographs. 2. Large soft tissue contusion to the medial aspect of the distal thigh with underlying large 7.6 x 5 .7 cm hematoma involving the subcutaneous adipose extending into the medial quadriceps muscle. Clinic al and/or ultrasound follow-up recommended to ensure gradual involution. Corresponding underlying lar ge bone bruise to the medial distal femoral metadiaphysis. 3. Moderate complex joint effusion/hemarthrosis. Marked generalized soft tissue swelling. 4. Oblique tear posterior horn medial meniscus. The body of the medial meniscus is diminutive suggest ing chronic tear or prior surgery. Clinically correlate. 5. Inner margin radial tear involving the body of the lateral meniscus. 6. [id number] tricompartmental osteoarthrosis.
== END | disposition home or self-care (01) ==
LOC: RADMRIMAIN 14:44
PROVIDERS: ATTEND Orthopaedic Surgery
DX: M89.38 Hypertrophy of bone, other site (principal); S80.02XA Contusion of left knee, initial encounter; S83.242A Other tear of medial meniscus, current injury, left knee, initial encounter; S83.282A Other tear of lateral meniscus, current injury, left knee, initial encounter; M17.12 Unilateral primary osteoarthritis, left knee

== ENCOUNTER → 2023-02-06 | Outpatient (CLI) | payer MEDICARE, OTHER ==
--- NOTE | 2023-02-06 15:12 | XR ---
EXAMINATION TYPE: XR lumbosacral spine min 4V DATE OF EXAM: 02/06/2023 CLINICAL HISTORY: Low back pain. TECHNIQUE: Frontal, lateral, and oblique images of the lumbar spine are obtained. COMPARISON: MRI lumbar spine 2011. CT chest abdomen and pelvis 2018 FINDINGS: There are 5 lumbar type vertebral bodies redemonstrated. There is persistent grade 1 anter olisthesis L5 on S1 with moderate disc space narrowing at this level. There is chronic moderate compr ession type fracture at T12 level redemonstrated. Mild disc space narrowing with moderate anterior sp urring at T12-L1 level is again seen. Vertebral body heights and disc space heights otherwise are constantino ntained. There is facet arthropathy in the lower lumbar spine. Oblique images appear within normal li mits. Mild overlying arterial vascular calcification is present. IMPRESSION: As above.
== END | disposition home or self-care (01) ==
LOC: RADXRMAIN 14:21
PROVIDERS: ATTEND Physical Medicine & Rehabilitation
DX: M47.816 Spondylosis without myelopathy or radiculopathy, lumbar region (principal); M51.25 Other intervertebral disc displacement, thoracolumbar region; M51.36 Other intervertebral disc degeneration, lumbar region; M51.86 Other intervertebral disc disorders, lumbar region
CPT/HCPCS: 72110

== ENCOUNTER → 2023-06-21 | Outpatient (CLI) | payer MEDICARE, OTHER ==
--- NOTE | 2023-06-23 13:06 | CTL ---
EXAMINATION TYPE: CT Low Dose Lung DATE OF EXAM ORDERED: 06/21/2023 HISTORY: 58-year-old male Z12.2, F17.210. Lung cancer screening CT DLP: 91.[address] CTDI: 2.2 mGy Automated exposure control for dose reduction was used. SCREENING VISIT: Baseline COMPARISON: CT chest, abdomen, and pelvis from 10/09/2019 TECHNIQUE: Low dose computed tomography scan was performed through the chest with coronal and sagitta l reconstructions. CT DIAGNOSTIC QUALITY: Satisfactory FINDINGS: Heart normal size without pericardial effusion. LAD coronary artery calcifications are present. Minimal scattered atherosclerotic aortic calcifications. Conventional arch vessel branching anatomy. Known underlying thyroid nodules not as well-demonstrated without IV contrast. Overall configuration is similar to 2019. Scattered nonenlarged mediastinal lymph nodes remain unchanged. Borderline in size at 1 cm lower righ t paratracheal. Mild biapical pleural parenchymal scarring. Mild diffuse bronchial wall thickening. Strandy secretion s distal right main stem bronchus. Hyperinflation with increased AP chest diameter. No consolidation or pleural effusion. Scattered bilateral pulmonary nodules measuring 6 mm and smaller, many of which are calcified suggest ing calcified granulomas. Visualized upper abdomen shows no gross abnormal. [id number] multilevel spondylotic change mid to lower thoracic spine. Inferior endplate deformi ty of L1 is unchanged. IMPRESSION: 1. LungRADS 2, benign. Numerous scattered calcified and noncalcified pulmonary nodules measuring 6 cm and smaller. The calcified nodules suggest prior granulomatous disease. 2. Prominent hyperinflation suggesting underlying emphysema. CT LUNG RAD AND CT CHEST RECOMMENDATION: Lung-Rad 2 Benign Appearance or Behavior: Continue annual sc reening with LDCT in 12 months. S Modifier (other clinically significant findings): None
== END | disposition home or self-care (01) ==
LOC: RADCTMAIN 15:03
PROVIDERS: ATTEND Family Medicine
DX: Z12.2 Encounter for screening for malignant neoplasm of respiratory organs (principal); J98.4 Other disorders of lung; R91.8 Other nonspecific abnormal finding of lung field; F17.210 Nicotine dependence, cigarettes, uncomplicated
CPT/HCPCS: 71271

== ENCOUNTER 2023-11-19 18:15 | Emergency (ER) | payer MEDICARE, OTHER ==
--- NOTE | 2023-11-19 18:23 | ED ---
General Adult HPI - General Source: RN notes reviewed <Hailey Price - Last Filed: 11/19/23 18:21> <Ferny Pierce - Last Filed: 11/19/23 22:10> - General Stated complaint: Abn EKG Time Seen by Provider: 11/19/23 18:21 - History of Present Illness Initial comments: 58-year-old male presents to the emergency department with a chief complaint of chest pain. Patient did have an EKG at an urgent care prior to arrival who recommended he be evaluated in the emergency department immediately. He is complaining of right-sided chest pain although he attributes this to having a cough and recent Covid diagnosis. (Hailey Price) Dictation was produced using [employer] dictation software. please excuse any grammatical, word or spelling errors. Chief Complaint: 58-year-old male presents to the emergency department for concerns of abnormal EKG History of Present Illness: Patient is a 58-year-old male he was diagnosed with cold recently. He was sent home on medications. He's been on medications since last week. States that is not really improving with back to the urgent care. They did a workup because he is complaining of sharp chest pain. They did an EKG and state that it was abnormal. He was told to come to the emergency department immediately for concerns of acute coronary syndrome. Patient has a history of heart attacks. No family history of cardiac disease. Does use tobacco and is dyslipidemia. The ROS documented in this emergency department record has been reviewed and confirmed by me. Those systems with pertinent positive or negative responses have been documented in the HPI. All other systems are other negative and/or noncontributory. (Ferny Pierce) - Related Data Home Medications Medication Instructions Recorded Confirmed HYDROcodone/APAP 10-325MG [[place] 1 tab PO QID 09/03/16 11/19/23 10-325] Fluticasone/Umeclidin/Vilanter 1 puff INHALATION RT-DAILY 12/16/19 11/19/23 [Trelegy Ellipta 100-62.5-25] Albuterol Sulfate [Albuterol 2 puff PO RT-Q6H PRN 11/19/23 11/19/23 Sulfate Hfa] Allergies Allergy/AdvReac Type Severity Reaction Status Date / Time adhesive tape Allergy Rash/Hives Verified 11/19/23 20:43 Review of Systems ROS Other: All systems not noted in ROS Statement are negative. <Hailey Price - Last Filed: 11/19/23 18:21> ROS Other: All systems not noted in ROS Statement are negative. <Ferny Pierce - Last Filed: 11/19/23 22:10> ROS Statement: Those systems with pertinent positive or pertinent negative responses have been documented in the HPI. Past Medical History Past Medical History: Chest Pain / Angina, COPD, Deep Vein Thrombosis (DVT), GERD/Reflux, Hyperlipidemia, Osteoarthritis (OA) Additional Past Medical History / Comment(s): Hx Quick's Esophagus. , Back and knee pain, States slow heart rate and Short of breath with exertion-may need pacemaker in the future-having testing done by Dr. Rai (Cardiology)., States lump behind right ear that is painful and occasional tingling right fingers, DVT behind left knee History of Any Multi-Drug Resistant Organisms: None Reported Past Surgical History: Orthopedic Surgery Additional Past Surgical History / Comment(s): RIGHT KNEE ARTHROSCOPY, LEFT KNEE SURGERY X2, COLONOSCOPY, EGD. 12/15/19 left neck biopsy to rule out cancer Past Anesthesia/Blood Transfusion Reactions: Previous Problems w/ Anesthesia Additional Past Anesthesia/Blood Transfusion Reaction / Comment(s): WOKE UP DURING SURGERY, CLAUSTROPHOBIC. no previous blood transfusion Past Psychological History: Anxiety, Bipolar, Depression Past Alcohol Use History: Rare Past Drug Use History: Marijuana - Past Family History Mother Family Medical History: Cancer Additional Family Medical History / Comment(s): LUNG AND BREAST CANCER <Hailey Price - Last Filed: 11/19/23 18:21> General Exam <Hailey Price - Last Filed: 11/19/23 18:21> <Ferny Pierce - Last Filed: 11/19/23 22:10> - General Exam Comments Initial Comments: Visual Physical Exam Vital signs reviewed General: Well-appearing, nontoxic, no acute distress. Head: Normocephalic, atraumatic Eyes: PERRLA, EOMI ENT: Airway patent Chest: Nonlabored breathing Skin: No visual rash, normal skin tone Neuro: Alert and oriented 3 Musculoskeletal: No gross abnormalities (Hailey Price) PHYSICAL EXAM: General Impression: Alert and oriented x3, not in acute distress HEENT: Normocephalic atraumatic, extra-ocular movements intact, pupils equal and reactive to light bilaterally, mucous membranes moist. Cardiovascular: Heart regular rate and rhythm Chest: Able to complete full sentences, no retractions, no tachypnea Abdomen: abdomen soft, non-tender, non-distended, no organomegaly Musculoskeletal: Pulses present and equal in all extremities, no peripheral edema Motor: no focal deficits noted Neurological: CN II-XII grossly intact, no focal motor or sensory deficits noted Skin: Intact with no visualized rashes Psych: Normal affect and mood (Ferny Pierce) Course Vital Signs 11/19/23 11/19/23 18:18 19:27 Temperature 98.0 F Pulse Rate 59 L 53 L Respiratory 18 19 Rate Blood Pressure 122/84 129/83 O2 Sat by Pulse 98 97 Oximetry EKG Findings - EKG Comments: EKG Findings:: My EKG interpretation: Ventricular rate [default value]. No NV prolongation, no QTC prolongation, no ST or T-wave changes noted. Some benign early repolarization in lateral precordial leads. Overall, this EKG is unremarkable <Ferny Pierce - Last Filed: 11/19/23 22:10> Medical Decision Making <Hailey Price - Last Filed: 11/19/23 18:21> - Lab Data Result diagrams: 11/19/23 18:39 11/19/23 18:39 <Ferny Pierce - Last Filed: 11/19/23 22:10> - Medical Decision Making I performed the quick note portion of this exam, verbal signature Hailey Price PA-C (Hailey Price) Was pt. sent in by a medical professional or institution ([facility], [facility], urgent ca re, hospital, or group home...) When possible be specific @ -No Did you speak to anyone other than the patient for history (EMS, parent, family, police, friend...)? What history was obtained from this source @ -No Did you review nursing and triage notes (agree or disagree)? Why? @ -I reviewed and agree with nursing and triage notes Were old charts reviewed (outside hosp., previous admission, EMS record, old EKG, old radiological studies, urgent care reports/EKG's, group home records)? Report findings @ -No old charts were reviewed Differential Diagnosis (chest pain, altered mental status, abdominal pain women, abdominal pain men, vaginal bleeding, musculoskeletal, weakness, fever, dyspnea, syncope, headache, dizziness, GI bleed, back pain, seizure, CVA, palpatations, mental health)? @ -Differential Chest Pain: Stable Angina, Unstable Angina, STEMI, NSTEMI Aortic Dissection, Pneumothorax, Musculoskeletal, Esophageal Spasm GERD, Cholecystitis, Pancreatitis, Zoster, this is not meant to be an all-inclusive list. EKG interpreted by me (3pts min.). @ -See above X-rays interpreted by me (1pt min.). @ -No acute processes on chest x-ray CT interpreted by me (1pt min.). @ -None done U/S interpreted by me (1pt. min.). @ -Venous Doppler ultrasound on the left lower shoulder shows no acute processes. What testing was considered but not performed or refused? (CT, X-rays, U/S, labs)? Why? @ -None What meds were considered but not given or refused? Why? @ -None Did you discuss the management of the patient with other professionals (professionals i.e. , PA, BONDERIZER, lab, RT, psych nurse, social professionals, hydraulic miner, teacher, personnel training officer, community case manager)? Give summary @ -No Was smoking cessation discussed for >3mins.? @ -No Was critical care preformed (if so, how long)? @ -No Were there social determinants of health that impacted care today? How? (Homelessness, low income, unemployed, alcoholism, drug addiction, transportation, low edu. Level, literacy, decrease access to med. care, fdc, rehab)? @ -No Was there de-escalation of care discussed even if they declined (Discuss DNR or withdrawal of care, Hospice)? DNR status @ -No What co-morbidities impacted this encounter? (DM, HTN, Smoking, COPD, CAD, Cancer, CVA, ARF, Chemo, Hep., AIDS, mental health diagnosis, sleep apnea, morbid obesity)? @ -None Was patient admitted / discharged? Hospital course, mention meds given and route, prescriptions, significant lab abnormalities, going to OR and other pertinent info. @ -58 Year-old male with multiple comorbidities sent to the emergency department for atypical chest pain. Vital signs are stable. Laboratory evaluation is unremarkable. D-dimer troponin is negative. Ultrasound is unrema rkable. Patient observed in the emergency department for 3 hours and 53 minutes. Patient relented bedside at 10:10 PM 5 to be stable medical condition. Patient agreeable for discharge. Symptoms likely musculoskeletal in nature. Undiagnosed new problem with uncertain prognosis? @ -No Drug Therapy requiring intensive monitoring for toxicity (Heparin, Nitro, Insulin, Cardizem)? @ -No Were any procedures done? @ -No Diagnosis/symptom? Acute, or Chronic, or Acute on Chronic? Uncomplicated (without systemic symptoms) or Complicated (systemic symptoms)? @ -Pleurisy Side effects of treatment? @ -No Exacerbation, Progression, or Severe Exacerbation? @ -No Poses a threat to life or bodily function? How? (Chest pain, [place], [place], pneumonia, PE, COPD, DKA, ARF, appy, cholecystitis, CVA, Diverticulitis, Homicidal, Suicidal, threat to staff... and all critical care pts) @ -No (Ferny Pierce) - Lab Data Lab Results 11/19/23 11/19/23 11/19/23 Range/Units 18:39 18:39 18:39 WBC 8.7 (3.8-10.6) k/uL RBC 5.02 (4.30-5.90) m/uL Hgb 15.5 (13.0-17.5) gm/dL Hct 47.9 (39.0-53.0) % MCV 95.3 (80.0-100.0) fL MCH 30.8 (25.0-35.0) pg MCHC 32.3 (31.0-37.0) g/dL RDW 12.7 (11.5-15.5) % Plt Count 216 (150-450) k/uL MPV 7.8 Neutrophils % 56 % Lymphocytes % 35 % Monocytes % 6 % Eosinophils % 1 % Basophils % 1 % Neutrophils # 4.8 (1.3-7.7) k/uL Lymphocytes # 3.0 (1.0-4.8) k/uL Monocytes # 0.5 (0-1.0) k/uL Eosinophils # 0.1 (0-0.7) k/uL Basophils # 0.1 (0-0.2) k/uL PT 10.8 (10.0-12.5) sec INR 1.0 (<1.2) APTT 24.0 (22.0-30.0) sec D-Dimer 0.46 (<0.60) mg/L FEU Sodium 138 (137-145) mmol/L Potassium 4.0 (3.5-5.1) mmol/L Chloride 104 (98-107) mmol/L Carbon Dioxide 25 (22-30) mmol/L Anion Gap 9 mmol/L BUN 16 (9-20) mg/dL Creatinine 0.81 (0.66-1.25) mg/dL Est GFR (CKD-EPI)AfAm >90 (>60 ml/min/1.73 sqM) Est GFR (CKD-EPI)NonAf >90 (>60 ml/min/1.73 sqM) Glucose 87 (74-99) mg/dL Calcium 9.1 (8.4-10.2) mg/dL Total Bilirubin 0.3 (0.2-1.3) mg/dL AST 24 (17-59) U/L ALT 21 (4-49) U/L Alkaline Phosphatase 61 (38-126) U/L Troponin I (0.000-0.034) ng/mL Total Protein 6.6 (6.3-8.2) g/dL Albumin 4.1 (3.5-5.0) g/dL 11/19/23 Range/Units 18:39 WBC (3.8-10.6) k/uL RBC (4.30-5.90) m/uL Hgb (13.0-17.5) gm/dL Hct (39.0-53.0) % MCV (80.0-100.0) fL MCH (25.0-35.0) pg MCHC (31.0-37.0) g/dL RDW (11.5-15.5) % Plt Count (150-450) k/uL MPV Neutrophils % % Lymphocytes % % Monocytes % % Eosinophils % % Basophils % % Neutrophils # (1.3-7.7) k/uL Lymphocytes # (1.0-4.8) k/uL Monocytes # (0-1.0) k/uL Eosinophils # (0-0.7) k/uL Basophils # (0-0.2) k/uL PT (10.0-12.5) sec INR (<1.2) APTT (22.0-30.0) sec D-Dimer (<0.60) mg/L FEU Sodium (137-145) mmol/L Potassium (3.5-5.1) mmol/L Chloride (98-107) mmol/L Carbon Dioxide (22-30) mmol/L Anion Gap mmol/L BUN (9-20) mg/dL Creatinine (0.66-1.25) mg/dL Est GFR (CKD-EPI)AfAm (>60 ml/min/1.73 sqM) Est GFR (CKD-EPI)NonAf (>60 ml/min/1.73 sqM) Glucose (74-99) mg/dL Calcium (8.4-10.2) mg/dL Total Bilirubin (0.2-1.3) mg/dL AST (17-59) U/L ALT (4-49) U/L Alkaline Phosphatase (38-126) U/L Troponin I <0.012 (0.000-0.034) ng/mL Total Protein (6.3-8.2) g/dL Albumin (3.5-5.0) g/dL Disposition <Hailey Price - Last Filed: 11/19/23 18:21> Is patient prescribed a controlled substance at d/c from ED?: No Time of Disposition: 22:10 <Ferny Pierce - Last Filed: 11/19/23 22:10> Clinical Impression: Pleurisy Disposition: HOME SELF-CARE Condition: Good Instructions (If sedation given, give patient instructions): Pleurisy (ED) Referrals: Di Mccurdy MD [Primary Care Provider] - 1-2 days
[2023-11-19 18:33] VITALS: TEMP 98
[2023-11-19 19:40] LABS: Basophils # (A) 0.1 k/uL (0-0.2); Basophils % (A) 1 %; Eosinophils # (A) 0.1 k/uL (0-0.7); Eosinophils % (A) 1 %; HCT 47.9 % (39.0-53.0); HGB 15.5 gm/dL (13.0-17.5); Lymphocytes % (A) 35 %; MCH 30.8 pg (25.0-35.0); MCHC 32.3 g/dL (31.0-37.0); MCV 95.3 fL (80.0-100.0); Mean Platelet Volume 7.8; Monocytes # (A) 0.5 k/uL (0-1.0); Monocytes % (A) 6 %; Neutrophils # (A) 4.8 k/uL (1.3-7.7); Neutrophils % (A) 56 %; Platelet Count 216 k/uL (150-450); RBC 5.02 m/uL (4.30-5.90); RDW 12.7 % (11.5-15.5); WBC 8.7 k/uL (3.8-10.6)
[2023-11-19 19:50] LABS: Prothrombin Time 10.8 sec (10.0-12.5)
[2023-11-19 19:55] LABS: ALT 21 U/L (4-49); AST 24 U/L (17-59); African American GFR (CKD) >90 (>60 ml/min/1.73 sqM); Albumin 4.1 g/dL (3.5-5.0); Alkaline Phosphatase 61 U/L (38-126); Anion Gap 9 mmol/L; Blood Urea Nitrogen 16 mg/dL (9-20); Calcium 9.1 mg/dL (8.4-10.2); Carbon Dioxide 25 mmol/L (22-30); Chloride 104 mmol/L (98-107); Glucose 87 mg/dL (74-99); Non-African American GFR(CKD) >90 (>60 ml/min/1.73 sqM); Sodium 138 mmol/L (137-145); Total Bilirubin 0.3 mg/dL (0.2-1.3); Total Protein 6.6 g/dL (6.3-8.2)
--- NOTE | 2023-11-19 20:19 | XR ---
EXAMINATION TYPE: XR chest 2V DATE OF EXAM: 11/19/2023 8:14 PM CLINICAL INDICATION:Male, 58 years old with history of chest pain, cough; PHH COMPARISON: Chest radiographs from 12/17/2019. TECHNIQUE: XR chest 2V Frontal and lateral views of the chest. FINDINGS: Lungs/Pleura: There is no evidence of pleural effusion, focal consolidation, or pneumothorax. Pulmonary vascularity: Unremarkable. Heart/mediastinum: Cardiomediastinal silhouette is unremarkable. Musculoskeletal: No acute osseous pathology. IMPRESSION: No acute cardiopulmonary disease/process.
--- NOTE | 2023-11-19 22:03 | US ---
EXAMINATION TYPE: US venous doppler duplex LE LT DATE OF EXAM: 11/19/2023 8:10 PM COMPARISON: 09/30/19 CLINICAL INDICATION: Male, 58 years old with history of calf pain; Left leg swelling and pain x 1-2 d ays. Hx of DVT in left popliteal v in 209. No longer on blood thinners SIDE PERFORMED: Left TECHNIQUE: The lower extremity deep venous system is examined utilizing real time linear array sonog alexandre with graded compression, doppler sonography and color-flow sonography. VESSELS IMAGED: Common Femoral Vein Deep Femoral Vein Greater Saphenous Vein * Femoral Vein Popliteal Vein Small Saphenous Vein * Proximal Calf Veins (* superficial vessels) Left Leg: No evidence for DVT IMPRESSION: 1. Left lower extremity ultrasound negative for deep venous thrombosis.
[2023-11-19 22:31] VITALS: BP 107/73; PULSE 52; RESP 17
== END 2023-11-19 22:32 | disposition home or self-care (01) ==
LOC: EC 18:15
DX: R09.1 Pleurisy (principal); M19.90 Unspecified osteoarthritis, unspecified site; Z86.718 Personal history of other venous thrombosis and embolism; J44.9 Chronic obstructive pulmonary disease, unspecified; F41.9 Anxiety disorder, unspecified; F31.9 Bipolar disorder, unspecified; F12.90 Cannabis use, unspecified, uncomplicated; Z88.8 Allergy status to other drugs, medicaments and biological substances; Z79.51 Long term (current) use of inhaled steroids; Z79.899 Other long term (current) drug therapy
CPT/HCPCS: 36415; 71046; 80053; 84484; 85025; 85379; 85610; 85730; 93005; 99285

== ENCOUNTER → 2024-02-11 | Outpatient (CLI) | payer MEDICARE, OTHER ==
--- NOTE | 2024-02-20 12:32 | MR ---
EXAMINATION TYPE: MR katiana/margaret wo con DATE OF EXAM: 02/11/2024 COMPARISON: HISTORY: Mid and low back pain into left side CONTRAST: Performed utilizing mL intravenous gadolinium contrast. TECHNIQUE: Multiplanar, multiecho imaging on a 3.0 Radha magnet is performed through the thoracic spi ne. Disc bulge is present C7-T1 with mild anterior thecal sac compression. There is exaggeration of the thoracic kyphosis. Vertebral body alignment is otherwise normal. Verte bral body heights appear preserved. Disc heights are preserved. Disc desiccation is present. Cord constantino ntains normal signal throughout visualized course. Some mild facet hypertrophy in the lower thoracic spine is noted with mild posterior lateral thecal s ac compression. No cord contact is evident. No spinal canal stenosis is evident. IMPRESSION: 1. Exaggeration of thoracic kyphosis. 2. No acute changes. 3. No spinal canal stenosis EXAMINATION TYPE: MR katiana/margaret wo con DATE OF EXAM: 02/11/2024 COMPARISON: None HISTORY: Mid and low back pain into left side CONTRAST: 0 mL intravenous Gadavist. TECHNIQUE: Multiplanar, multisequence images of the lumbar spine were acquired. FINDINGS: L5-S1: No significant disc bulge or disc herniation. No spinal canal stenosis. Mild facet hypertrop hy is present without thecal sac impression and moderate narrowing of the right foramen is present.. L4-L5: No significant disc bulge or disc herniation. Facet hypertrophy is present with posterior late ral thecal sac compression. Some lateral canal narrowing is present. No AP spinal canal stenosis. L3-L4: No significant disc bulge or disc herniation. No spinal canal stenosis. No foraminal stenosi s. L2-L3: No significant disc bulge or disc herniation. No spinal canal stenosis. No foraminal stenosi s. L1-L2: No significant disc bulge or disc herniation. No spinal canal stenosis. No foraminal stenosi s. T12-L1: The lumbar spine images the T12 compression deformity is better visualized. This was present on plain films 2022. Minimal retrolisthesis of T12 on L1 is present. Mild disc bulge is present. Righ t paracentral disc bulging and endplate changes have moderate anterior thecal sac compression. Neural foramen are patent. No AP spinal canal stenosis is evident. No cord contact is evident. Cord termina fabrizio at the T12-L1 level. IMPRESSION: 1. Old mild compression deformity with approximately 30% loss of anterior vertebral body height T12 a ppears chronic. 2. Mild grade 1 retrolisthesis of T12 on L1 with disc uncovering. Mild right paracentral disc bulge.
== END | disposition home or self-care (01) ==
LOC: RADMRIMAIN 21:15
PROVIDERS: ATTEND Anesthesiology
DX: M43.15 Spondylolisthesis, thoracolumbar region (principal); M51.15 Intervertebral disc disorders with radiculopathy, thoracolumbar region; M43.8X4 Other specified deforming dorsopathies, thoracic region
CPT/HCPCS: 72146; 72148

== ENCOUNTER 2024-07-28 12:05 | Observation (INO) | payer MEDICARE, OTHER ==
--- NOTE | 2024-07-28 12:56 | ED ---
Chest Pain HPI - General Source: patient, RN notes reviewed Mode of arrival: ambulatory Limitations: no limitations - History of Present Illness MD Complaint: chest pain <Ese Mosley - Last Filed: 07/28/24 12:54> - General Source: patient, RN notes reviewed Mode of arrival: ambulatory Limitations: no limitations <Laswon Mtz - Last Filed: 07/28/24 14:02> - General Chief Complaint: Chest Pain Stated Complaint: L arm/Chest pain Time Seen by Provider: 07/28/24 12:50 - History of Present Illness Initial Comments: Quick Note: This is a 59-year-old male who presents to the emergency department for left arm and chest pain. States that over the last couple of days he has had pain in his left arm with some soreness in the chest. Reports minor shortness of breath. States that he has been under a lot of stress lately as his girlfriend is in the ICU. States that he used to follow-up with Dr. Amos, cardiology, but has not done so recently. Does not have any stents. Unsure if he may have had a heart attack many years ago. (Ese Mosley) Patient is a 59-year-old male present to the emergency department chest discomfort. Symptoms have been for the past few days, 3-4. Discomfort radiates to the left arm. Discomfort feels like tightness. Symptoms are exertional. No associated nausea or diaphoresis. Patient does have associated dyspnea. No calf pain or leg swelling. Patient does have some sort of previous cardiac history. Patient was at urgent care and advised to come to the emergency department (Lawson Mtz) - Related Data Home Medications Medication Instructions Recorded Confirmed HYDROcodone/APAP 10-325MG [[place] 1 tab PO QID 09/03/16 11/19/23 10-325] Fluticasone/Umeclidin/Vilanter 1 puff INHALATION RT-DAILY 12/16/19 11/19/23 [Trelegy Ellipta 100-62.5-25] Albuterol Sulfate [Albuterol 2 puff PO RT-Q6H PRN 11/19/23 11/19/23 Sulfate Hfa] Allergies Allergy/AdvReac Type Severity Reaction Status Date / Time adhesive tape Allergy Rash/Hives Verified 11/19/23 20:43 latex Allergy Rash/Hives Verified 07/28/24 12:34 Review of Systems ROS Other: All systems not noted in ROS Statement are negative. <Ese Mosley - Last Filed: 07/28/24 12:54> ROS Other: All systems not noted in ROS Statement are negative. Constitutional: Denies: fever Eyes: Denies: eye pain ENT: Denies: ear pain Respiratory: Reports: as per HPI Cardiovascular: Reports: as per HPI, chest pain, dyspnea on exertion Gastrointestinal: Denies: abdominal pain Musculoskeletal: Denies: back pain <Lawson Mtz - Last Filed: 07/28/24 14:02> ROS Statement: Those systems with pertinent positive or pertinent negative responses have been documented in the HPI. EKG Findings - EKG Results: EKG: interpreted by ERMD (Left axis. Septal Q waves.), sinus rhythm, normal ST/T EKG shows: bradycardia <Lawson Mtz Last Filed: 07/28/24 14:02> Past Medical History Past Medical History: Chest Pain / Angina, COPD, Deep Vein Thrombosis (DVT), GERD/Reflux, Hyperlipidemia, Osteoarthritis (OA) Additional Past Medical History / Comment(s): Hx Quick's Esophagus. , Back and knee pain, States slow heart rate and Short of breath with exertion-may need pacemaker in the future-having testing done by Dr. Rai (Cardiology)., States lump behind right ear that is painful and occasional tingling right fingers, DVT behind left knee History of Any Multi-Drug Resistant Organisms: None Reported Past Surgical History: Orthopedic Surgery Additional Past Surgical History / Comment(s): RIGHT KNEE ARTHROSCOPY, LEFT KNEE SURGERY X2, COLONOSCOPY, EGD. 12/15/19 left neck biopsy to rule out cancer Past Anesthesia/Blood Transfusion Reactions: Previous Problems w/ Anesthesia Additional Past Anesthesia/Blood Transfusion Reaction / Comment(s): WOKE UP DURING SURGERY, CLAUSTROPHOBIC. no previous blood transfusion Past Psychological History: Anxiety, Bipolar, Depression Smoking Status: Current every day smoker Past Alcohol Use History: Rare Past Drug Use History: Marijuana - Past Family History Mother Family Medical History: Cancer Additional Family Medical History / Comment(s): LUNG AND BREAST CANCER <Ese Mosley Last Filed: 07/28/24 12:54> General Exam Limitations: no limitations <Ese Mosley - Last Filed: 07/28/24 12:54> Limitations: no limitations General appearance: alert, in no apparent distress Head exam: Present: normocephalic Eye exam: Present: normal appearance Neck exam: Present: normal inspection Respiratory exam: Present: normal lung sounds bilaterally Cardiovascular Exam: Present: regular rate, normal rhythm, normal heart sounds Expanded Peripheral pulses: 2+: Radial (R), Radial (L), Posterior Tibialis (R), Posterior Tibialis (L), Dorsalis Pedis (R), Dorsalis Pedis (L) GI/Abdominal exam: Present: soft. Absent: tenderness Extremities exam: Present: normal inspection. Absent: pedal edema, calf tenderness Back exam: Present: normal inspection Neurological exam: Present: alert Psychiatric exam: Present: normal affect, normal mood Skin exam: Present: normal color <Lawson Mtz - Last Filed: 07/28/24 14:02> - General Exam Comments Initial Comments: Visual Physical Exam Vital signs reviewed General: Well-appearing, nontoxic, no acute distress. Head: Normocephalic, atraumatic Eyes: PERRLA, EOMI ENT: Airway patent Chest: Nonlabored breathing Skin: No visual rash, normal skin tone Neuro: Alert and oriented 3 Musculoskeletal: No gross abnormalities (Ese Mosley) Course Vital Signs 07/28/24 07/28/24 12:32 13:21 Temperature 98.2 F Pulse Rate 56 L 62 Pulse Rate [ 62 Application Dba ] Respiratory 18 18 Rate Blood Pressure 143/87 130/90 O2 Sat by Pulse 99 95 Oximetry Chest Pain [facility] <Ese Mosley - Last Filed: 07/28/24 12:54> <Lawson Mtz - Last Filed: 07/28/24 14:02> - [facility] I performed the QuickNote portion of this chart. Signed Ese Mosley PA-C. (Ese Mosley) Was pt. sent in by a medical professional or institution (DESHAUN Huerta, LABOR AND DELIVERY NURSE, urgent care, hospital, or half-way...) When possible be specific @ -[Patient was sent in by urgent care did you speak to anyone other than the patient for history (EMS, parent, family, police, friend...)? What history was obtained from this source @ -Patient was sent in by urgent care Did you review nursing and triage notes (agree or disagree)? Why? @ -I reviewed and agree with nursing and triage notes Were old charts reviewed (outside hosp., previous admission, EMS record, old EKG, old radiological studies, urgent care reports/EKG's, half-way records)? Report findings @ -No old charts were reviewed Differential Diagnosis (chest pain, altered mental status, abdominal pain women, abdominal pain men, vaginal bleeding, weakness, fever, dyspnea, syncope, headache, dizziness, GI bleed, back pain, seizure, CVA, palpatations, mental health, musculoskeletal)? @ -MDM differential differential Chest Pain: Stable Angina, Unstable Angina, STEMI, NSTEMI Aortic Dissection, Pneumothorax, Musculoskeletal, Esophageal Spasm GERD, Cholecystitis, Pancreatitis, Zoster, this is not meant to be an all-inclusive list. EKG interpreted by me (3pts min.). @ -Above X-rays interpreted by me (1pt min.). @ -Chest x-ray shows no acute process CT interpreted by me (1pt min.). @ -None done U/S interpreted by me (1pt. min.). @ -None done What testing was considered but not performed or refused? (CT, X-rays, U/S, labs)? Why? @ -None What meds were considered but not given or refused? Why? @ -None Did you discuss the management of the patient with other professionals (professionals i.e. , PA, LABOR AND DELIVERY NURSE, lab, RT, psych nurse, medical social consultant, gyn, teacher, quality officer, mattress spring encaser)? Give summary @ -Dr. Madera who will admit covering Dr. Hale Was smoking cessation discussed for >3mins.? @ -No Was critical care preformed (if so, how long)? @ -No Were there social determinants of health that impacted care today? How? (Homelessness, low income, unemployed, alcoholism, drug addiction, transportation, low edu. Level, literacy, decrease access to med. care, [place] [facility], rehab)? @ -No Was there de-escalation of care discussed even if they declined (Discuss DNR or withdrawal of care, Hospice)? DNR status @ -No What co-morbidities impacted this encounter? (DM, HTN, Smoking, COPD, CAD, Cancer, CVA, ARF, Chemo, Hep., AIDS, mental health diagnosis, sleep apnea, morbid obesity)? @ -Unknown positive cardiac previous history Was patient admitted / discharged? Hospital course, mention meds given and route, prescriptions, significant lab abnormalities, going to OR and other pertinent info. @ -Patient presented with chest pain with associated dyspnea that is exertional and radiates to the left arm. Initial troponin negative. Patient will be admitted with cardiac consult. [place] orders written. Undiagnosed new problem with uncertain prognosis? @ -No Drug Therapy requiring intensive monitoring for toxicity (Heparin, Nitro, Insulin, Cardizem)? @ -No Were any procedures done? @ -No Diagnosis/symptom? @ -Chest pain Acute, or Chronic, or Acute on Chronic? @ -Acute Uncomplicated (without systemic symptoms) or Complicated (systemic symptoms)? @ -Default Side effects of treatment? @ -No Exacerbation, Progression, or Severe Exacerbation? @ -No Poses a threat to life or bodily function? How? (Chest pain, [place], [place], pneumonia, PE, COPD, DKA, ARF, appy, cholecystitis, CVA, Diverticulitis, Homicidal, Suicidal, threat to staff... and all critical care pts) @ -Threat to cardiac function (Lawson Mtz) Disposition <Ese Mosley - Last Filed: 07/28/24 12:54> Is patient prescribed a controlled substance at d/c from ED?: No Time of Disposition: 14:02 <Lawson Mzt - Last Filed: 07/28/24 14:02> Clinical Impression: Chest pain Disposition: ADMITTED IP TO THIS HOSP Referrals: Di Mccurdy MD [Primary Care Provider] - 1-2 days
[2024-07-28 13:03] LABS: Basophils # (A) 0.1 k/uL (0-0.2); Basophils % (A) 1 %; Eosinophils # (A) 0.1 k/uL (0-0.7); Eosinophils % (A) 1 %; HCT 48.5 % (39.0-53.0); HGB 15.2 gm/dL (13.0-17.5); Lymphocytes # (A) 1.8 k/uL (1.0-4.8); Lymphocytes % (A) 23 %; MCH 30.6 pg (25.0-35.0); MCHC 31.4 g/dL (31.0-37.0); MCV 97.5 fL (80.0-100.0); Mean Platelet Volume 7.3; Monocytes # (A) 0.4 k/uL (0-1.0); Monocytes % (A) 5 %; Neutrophils # (A) 5.5 k/uL (1.3-7.7); Neutrophils % (A) 69 %; Platelet Count 214 k/uL (150-450); RBC 4.97 m/uL (4.30-5.90); RDW 13.1 % (11.5-15.5); WBC 7.9 k/uL (3.8-10.6)
[2024-07-28 13:04] LABS: ALT 16 U/L (4-49); AST 22 U/L (17-59); African American GFR (CKD) >90 (>60 ml/min/1.73 sqM); Albumin 4.1 g/dL (3.5-5.0); Alkaline Phosphatase 45 U/L (38-126); Anion Gap 2 mmol/L; Blood Urea Nitrogen 14 mg/dL (9-20); Calcium 9.3 mg/dL (8.4-10.2); Carbon Dioxide 30 mmol/L (22-30); Chloride 107 mmol/L (98-107); Glucose 95 mg/dL (74-99); Magnesium 2.1 mg/dL (1.6-2.3); Non-African American GFR(CKD) >90 (>60 ml/min/1.73 sqM); Potassium 4.7 mmol/L (3.5-5.1); Sodium 139 mmol/L (137-145); Total Bilirubin 0.4 mg/dL (0.2-1.3); Total Protein 6.4 g/dL (6.3-8.2)
--- NOTE | 2024-07-28 13:27 | XR ---
EXAMINATION TYPE: XR chest 2V DATE OF EXAM: 07/28/2024 1:18 PM CLINICAL INDICATION: Male, 59 years old with history of Chest Pain; COMPARISON: Chest radiographs from 11/19/2023 TECHNIQUE: XR chest 2V Frontal view of the chest. FINDINGS: Lungs/Pleura: There is flattening of the diaphragm with increased lucency of the lungs. No evidence o f pneumothorax, pleural effusion or focal consolidation. Pulmonary vascularity: Unremarkable. Heart/mediastinum: Cardiomediastinal silhouette is unremarkable. Musculoskeletal: No acute osseous pathology. Other findings: None IMPRESSION: 1. No acute cardiopulmonary disease process. 2. COPD changes.
[2024-07-28 13:32] LABS: Partial Thromboplastin Time 23.9 sec (22.0-30.0); Prothrombin Time 10.7 sec (10.0-12.5)
[2024-07-28] MEDS ORDERED: NITROGLYCERIN SL TABS 0.4 MG TAB SUBLINGUAL PRN (14:04)
[2024-07-28] MEDS: ASPIRIN 81 MG PO STA (14:25)
[2024-07-28] MEDS ORDERED: GABAPENTIN 400 MG CAP PO PRN (14:50)
[2024-07-28] MEDS ORDERED: LORATADINE 10 MG TAB PO PRN (14:50)
[2024-07-28] MEDS ORDERED: ALBUTEROL HFA INHALER INHALATION PRN (14:50)
[2024-07-28] MEDS ORDERED: ALBUTEROL NEBULIZED 2.5 MG/3 ML INHALATION PRN (14:50)
--- NOTE | 2024-07-28 16:33 | P.HPIM ---
History of Present Illness H&P Date: 07/28/24 Daron Matthew, is a 59-year-old male who presented to [facility] emergency room with a chief complaint of chest pain. Patient describes episodes of chest pressure on and off over the last week radiating to the left arm that is increased in severity and duration in the last 2 days, he also had mild shortness of breath. He states that he is under a lot of stress, with multiple family members hospitalized in different hospitals, including his girlfriend who is hospitalized in the ICU in this hospital. He was evaluated in the emergency room vital examination on presentation r evealed a temperature of 98.2 pulse 56 respiration 18 blood pressure 143/87 pulse ox 99% on room air Laboratory data revealed a white blood count of 7.9 hemoglobin 15.2 platelet count 214 D-dimer 0.25 BUN 14 creatinine 0.87 troponin level less than 0.012 Testing in the emergency room revealed chest x-ray revealed COPD changes no acute cardiopulmonary process. EKG revealed sinus bradycardia with Q wave in V1 and V2 might represent septal infarction. 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 On review of systems there is no fever or chills no headache or dizziness, no cough no nausea or vomiting no abdominal pain no diarrhea no blood in the stools no burning with urination no frequency or urgency and no hematuria. There is no weakness or numbness in any of the extremities no change in vision speech or gait. Past Medical History Past Medical History: Chest Pain / Angina, COPD, Deep Vein Thrombosis (DVT), GERD/Reflux, Hyperlipidemia, Osteoarthritis (OA) Additional Past Medical History / Comment(s): Hx Quick's Esophagus. , Back and knee pain, States slow heart rate and Short of breath with exertion-may need pacemaker in the future-having testing done by Dr. Rai (Cardiology)., States lump behind right ear that is painful and occasional tingling right fingers, DVT behind left knee History of Any Multi-Drug Resistant Organisms: None Reported Past Surgical History: Orthopedic Surgery Additional Past Surgical History / Comment(s): RIGHT KNEE ARTHROSCOPY, LEFT KNEE SURGERY X2, COLONOSCOPY, EGD. 12/15/19 left neck biopsy to rule out cancer Past Anesthesia/Blood Transfusion Reactions: Previous Problems w/ Anesthesia Additional Past Anesthesia/Blood Transfusion Reaction / Comment(s): WOKE UP DURING SURGERY, CLAUSTROPHOBIC. no previous blood transfusion Past Psychological History: Anxiety, Bipolar, Depression Smoking Status: Current every day smoker Past Alcohol Use History: Rare Past Drug Use History: Marijuana - Past Family History Mother Family Medical History: Cancer Additional Family Medical History / Comment(s): LUNG AND BREAST CANCER Medications and Allergies Home Medications Medication Instructions Recorded Confirmed Type HYDROcodone/APAP 10-325MG [[place] 1 tab PO QID 09/03/16 07/28/24 History 10-325] Albuterol Sulfate [Albuterol 2 puff INHALATION RT-Q6H PRN 11/19/23 07/28/24 His tory Sulfate Hfa] ALPRAZolam [Xanax] 1 mg PO TID PRN 07/28/24 07/28/24 History Albuterol Nebulized [Ventolin 2.5 mg INHALATION RT-QID PRN 07/28/24 07/28/24 History Nebulized] Atorvastatin [Lipitor] 40 mg PO HS 07/28/24 07/28/24 History Fluticasone/Umeclidin/Vilanter 1 puff INHALATION RT-DAILY 07/28/24 07/28/24 History [Trelegy Ellipta 200-62.5-25] Gabapentin 800 mg PO TID PRN 07/28/24 07/28/24 History Loratadine [Claritin] 10 mg PO DAILY PRN 07/28/24 07/28/24 History Allergies Allergy/AdvReac Type Severity Reaction Status Date / Time adhesive tape Allergy Rash/Hives Verified 07/28/24 14:40 latex Allergy Rash/Hives Verified 07/28/24 14:40 Physical Exam Vitals: Vital Signs Temp Pulse Pulse Resp BP Pulse Ox 07/28/24 13:21 62 62 18 130/90 95 07/28/24 12:32 98.2 F 56 L 18 143/87 99 Intake and Output 07/28/24 07/28/24 07/28/24 06:59 14:59 22:59 Other: Weight 91.626 kg In general patient is alert and oriented x 3 in no distress HEENT head normocephalic and atraumatic Neck is supple no JVD no goiter no lymphadenopathy no carotid bruit Chest examination is clear to auscultation no crackles no wheezing Cardiac exam reveals regular heart sounds S1 and S2 no gallops no murmurs Abdomen is soft nontender no organomegaly with normal bowel sounds Extremity exam reveals no edema no cyanosis or clubbing Neurological examination reveals no gross focal deficits Results CBC & Chem 7: 07/28/24 12:28 07/28/24 12:28 Assessment and Plan Plan: Episodes of chest pain Bradycardia with abnormal EKG Underlying history of COPD Underlying history of hypertension Previous history of chest pain with cardiac catheterization normal more than 10 years ago per patient Previous history of lower extremity DVT patient was maintained on antico agulation 5 years ago per patient Underlying history of degenerative disc disease maintained on [place] Underlying history of gastroesophageal reflux disease At this time patient was seen and examined Home medications reviewed and reordered Serial EKG and cardiac enzymes ordered Cardiology consultation requested Will follow closely
[2024-07-28] MEDS: HYDROcodone/APAP 10-325MG 1 EACH TAB PO SCH (17:14)
[2024-07-28] MEDS: NITROGLYCERIN OINT 1 INCH/GM PACKET TOPICAL SCH (18:31)
[2024-07-28] MEDS: ATORVASTATIN 40 MG TAB PO SCH (21:59)
[2024-07-29] MEDS: PANTOPRAZOLE 40 MG TABLET PO SCH (05:50)
[2024-07-29] MEDS: IPRATROPIUM 0.5 MG/2.5 ML NEBU INHALATION SCH (08:16)
[2024-07-29] MEDS: SYMBICORT 80-4.5 MCG INHALER INHALATION SCH (08:16)
[2024-07-29 08:41] LABS: Basophils # (A) 0.05 X 10*3/uL (0.00-0.10); Basophils % (A) 0.7 %; Eosinophils # (A) 0.09 X 10*3/uL (0.04-0.35); Eosinophils % (A) 1.3 %; HCT 42.4 % (39.6-50.0); Lymphocytes # (A) 2.49 X 10*3/uL (0.90-5.00); Lymphocytes % (A) 35.9 %; MCH 30.8 pg (27.0-32.0); MCV 93.4 FL (80.0-97.0); Mean Platelet Volume 10.1 FL (9.5-12.2); Monocytes # (A) 0.57 X 10*3/uL (0.20-1.00); Monocytes % (A) 8.2 %; NRBC Per 100 WBC 0 X 10*3/uL (0.00-0.01); Neutrophils # (A) 3.72 X 10*3/uL (1.80-7.70); Neutrophils % (A) 53.6 %; Platelet Count 170 X 10*3/uL (140-440); RBC 4.54 X 10*6/uL (4.40-5.60); RDW 13.2 % (11.5-14.5); WBC 6.94 X 10*3/uL (4.50-10.00)
[2024-07-29] MEDS: ENOXAPARIN 40 MG/0.4 ML SYRINGE SQ SCH (08:55)
[2024-07-29 09:00] LABS: ALT 14 U/L (10-49); AST 13 U/L (14-35); Albumin 3.8 g/dL (3.8-4.9); Albumin/Globulin Ratio 2.53 Ratio (1.60-3.17); Alkaline Phosphatase 43 U/L (41-126); Calcium 8.9 mg/dL (8.7-10.3); Carbon Dioxide 23.5 mmol/L (21.6-31.8); Chloride 109 mmol/L (96-109); Chol/HDL Ratio 3.74 Ratio; Globulin 1.5 g/dL (1.6-3.3); Glucose 96 mg/dL (70-110); LDL Cholesterol,Calculated 118.2 mg/dL (0.0-131.0); Potassium 4.3 mmol/L (3.5-5.5); Sodium 141 mmol/L (135-145); Total Bilirubin 0.4 mg/dL (0.3-1.2); Total Protein 5.3 g/dL (6.2-8.2)
[2024-07-29] MEDS ORDERED: ASPIRIN 325 MG TAB PO SCH (09:00)
--- NOTE | 2024-07-29 09:31 | P.PN ---
Subjective Progress Note Date: 07/29/24 Daron Matthew, is a 59-year-old male who presented to [facility] emergency room with a chief complaint of chest pain. Patient describes episodes of chest pressure on and off over the last week radiating to the left arm that is increased in severity and duration in the last 2 days, he also had mild shortness of breath. He states that he is under a lot of stress, with multiple family members hospitalized in different hospitals, including his girlfriend who is hospitalized in the ICU in this hospital. He was evaluated in the emergency room vital examination on presentation revealed a temperature of 98.2 pulse 56 respiration 18 blood pressure 143/87 pulse ox 99% on room air Laboratory data revealed a white blood count of 7.9 hemoglobin 15.2 platelet count 214 D-dimer 0.25 BUN 14 creatinine 0.87 troponin level less than 0.012 Testing in the emergency room revealed chest x-ray revealed COPD changes no acute cardiopulmonary process. EKG revealed sinus bradycardia with Q wave in V1 and V2 might represent septal infarction. 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 On review of systems there is no fever or chills no headache or dizziness, no cough no nausea or vomiting no abdominal pain no diarrhea no blood in the stools no burning with urination no frequency or urgency and no hematuria. There is no weakness or numbness in any of the extremities no change in vision speech or gait. On 07/29/2024 patient is alert and oriented x 3 plans today for cardiac stress test per cardiology services. At this time patient denies chest pain or shortness of breath. Patient denies nausea vomiting or diarrhea. Patient denies any urinary burning or frequency. Current vital signs temp 98.2, heart rate 50, respiratory rate 16, blood pressure 114/70 with a pulse ox of 99% on room air Objective - Vital Signs Vital signs: Vital Signs Temp 98.2 F 07/29/24 07:00 Pulse 50 L 07/29/24 08:00 Resp 16 07/29/24 07:00 BP 114/70 07/29/24 07:00 Pulse Ox 99 07/29/24 07:00 FiO2 Intake & Output 07/28/24 07/29/24 07/29/24 18:59 06:59 18:59 Weight 91.626 kg 91.626 kg - Exam In general patient is alert and oriented x 3 in no distress HEENT head normocephalic and atraumatic Neck is supple no JVD no goiter no lymphadenopathy no carotid bruit Chest examination is clear to auscultation no crackles no wheezing Cardiac exam reveals regular heart sounds S1 and S2 no gallops no murmurs Abdomen is soft nontender no organomegaly with normal bowel sounds Extremity exam reveals no edema no cyanosis or clubbing Neurological examination reveals no gross focal deficits - Labs CBC & Chem 7: 07/29/24 03:21 07/29/24 03:21 Labs: Abnormal Lab Results - Last 24 Hours (Table) 07/29/24 Range/Units 03:21 AST 13 L (14-35) U/L Total Protein 5.3 L (6.2-8.2) g/dL Globulin 1.5 L (1.6-3.3) g/dL Assessment and Plan Assessment: Episodes of chest pain Bradycardia with abnormal EKG Underlying history of COPD Underlying history of hypertension Previous history of chest pain with cardiac catheterization normal more than 10 years ago per patient Previous history of lower extremity DVT patient was maintained on anticoagulation 5 years ago per patient Underlying history of degenerative disc disease maintained on [place] Underlying history of gastroesophageal reflux disease At this time patient was seen and examined Home medications reviewed and reordered Serial EKG and cardiac enzymes ordered Plans for cardiac stress test today 07/29/2024 Cardiology consultation requested Will follow closely
--- NOTE | 2024-07-29 09:37 | P.CRDCN ---
History of Present Illness History of present illness: HISTORY OF PRESENT ILLNESS: This is a 59-year-old male with a past medical history significant for mild nonobstructive CAD and hyperlipidemia. Patient follows in the office with Dr. Amos. We have been asked to see the patient in consultation for chest pain. Patient examined at the bedside. Patient presented to the hospital with a chief complaint of chest discomfort. Patient states he has been under significant amount of stress lately. His girlfriend is critically ill in the intensive care unit and is supposed to be getting a trach performed. He states he has been getting pains in the middle of his chest along with a headache over the past few days. He denies any radiation of the pain. Denies any shortness of breath. DIAGNOSTICS: - EKG reveals sinus mechanism with no signs of acute ischemia. Nonspecific ST-T wave changes. - Chest xray negative for acute process. COPD changes. - Laboratory data: WBC 6.94. Hemoglobin 14.0. Platelet count 170. D-dimer 0.25. Sodium 141. Potassium 4.3. BUN 10. Creatinine 0.80. Troponin negative x 3. - Current home cardiac medications include Lipitor 40 mg at night - Most recent echocardiogram obtained in November 2019 revealed ejection fraction 50 to 55%, mild MR, mild TR REVIEW OF SYSTEMS: At the time of my exam: CONSTITUTIONAL: Denies fever or chills. HEENT: Denies blurred vision, vision changes, or eye pain. Denies hemoptysis CARDIOVASCULAR: Denies chest pain. Denies orthopnea. Denies PND. Denies palpitations RESPIRATORY: Denies shortness of breath. GASTROINTESTINAL: Denies abdominal pain. Denies nausea or vomiting. HEMATOLOGIC: Denies bleeding disorders. GENITOURINARY: Denies any blood in urine. SKIN: Denies pruitis. Denies rash. PHYSICAL EXAM: VITAL SIGNS: Reviewed. GENERAL: Well-developed in no acute distress. HEENT: Head is normocephalic. Pupils are equal, round. Sclerae anicteric. Mucous membranes of the mouth are moist. Neck supple. No JVD or thyromegaly LUNGS: Respirations even and unlabored. Lungs essentially clear to auscultation bilaterally. HEART: Regular rate and rhythm. S1 and S2 heard. ABDOMEN: Soft. Nondistended. Nontender. EXTREMITIES: Normal range of motion. No clubbing or cyanosis. Peripheral pulses intact. No lower extremity edema NEUROLOGIC: Awake and alert. Oriented x 3. ASSESSMENT: Chest pain History of mild nonobstructive CAD Hyperlipidemia Nicotine dependence PLAN: An acute coronary event has been ruled out Obtain 2D echo to assess cardiac structure and function Resume home cardiac medications Patient to undergo stress echocardiogram today If negative, he may be discharged home from a cardiac standpoint Nurse practitioner note has been reviewed by physician. Signing provider agrees with the documented findings, assessment, and plan of care documented by EMERGENCY ROOM REGISTERED NURSE as a scribe. Past Medical History Past Medical History: Chest Pain / Angina, COPD, Deep Vein Thrombosis (DVT), GERD/Reflux, Hyperlipidemia, Osteoarthritis (OA) Additional Past Medical History / Comment(s): Hx Quick's Esophagus. , Back and knee pain with multiple surgeries, on scheduled norco for chronic pain History of Any Multi-Drug Resistant Organisms: None Reported Past Surgical History: Orthopedic Surgery Additional Past Surgical History / Comment(s): RIGHT KNEE ARTHROSCOPY, LEFT KNEE SURGERY X2, COLONOSCOPY, EGD. 12/15/19 left neck biopsy to rule out cancer Past Anesthesia/Blood Transfusion Reactions: Previous Problems w/ Anesthesia Additional Past Anesthesia/Blood Transfusion Reaction / Comment(s): WOKE UP DURING SURGERY, CLAUSTROPHOBIC. no previous blood transfusion Past Psychological History: Anxiety, Bipolar, Depression Additional Psychological History / Comment(s): PERSONALITY DISORDER, HIGH ANXIETY DISORDER. Smoking Status: Current every day smoker Past Alcohol Use History: Rare Additional Past Alcohol Use History / Comment(s): SMOKES 2 PPD, SMOKING OVER 30 YEARS. Past Drug Use History: Marijuana Additional Drug Use History / Comment(s): medical marijuana - Past Family History Mother Family Medical History: Cancer Additional Family Medical History / Comment(s): LUNG AND BREAST CANCER Medications and Allergies Home Medications Medication Instructions Recorded Confirmed Type HYDROcodone/APAP 10-325MG [[place] 1 tab PO QID 09/03/16 07/28/24 History 10-325] Albuterol Sulfate [Albuterol 2 puff INHALATION RT-Q6H PRN 11/19/23 07/28/24 History Sulfate Hfa] ALPRAZolam [Xanax] 1 mg PO TID PRN 07/28/24 07/28/24 History Albuterol Nebulized [Ventolin 2.5 mg INHALATION RT-QID PRN 07/28/24 07/28/24 History Nebulized] Atorvastatin [Lipitor] 40 mg PO HS 07/28/24 07/28/24 History Fluticasone/Umeclidin/Vilanter 1 puff INHALATION RT-DAILY 07/28/24 07/28/24 History [Trelegy Ellipta 200-62.5-25] Gabapentin 800 mg PO TID PRN 07/28/24 07/28/24 History Loratadine [Claritin] 10 mg PO DAILY PRN 07/28/24 07/28/24 History Allergies Allergy/AdvReac Type Severity Reaction Status Date / Time adhesive tape Allergy Rash/Hives Verified 07/28/24 14:40 latex Allergy Rash/Hives Verified 07/28/24 14:40 Physical Exam Vitals: Vital Signs Temp Pulse Pulse Pulse Resp BP BP 07/29/24 08:00 50 L 07/29/24 07:00 98.2 F 50 L 16 114/70 07/29/24 02:36 98.2 F 47 L 14 99/56 07/28/24 23:21 97.7 F 52 L 16 123/68 07/28/24 23:00 46 L 18 112/76 07/28/24 22:01 50 L 18 106/78 07/28/24 19:28 55 L 18 108/60 07/28/24 18:00 56 L 16 107/74 07/28/24 16:00 58 L 18 130/83 07/28/24 13:21 62 62 18 130/90 07/28/24 12:32 98.2 F 56 L 18 143/87 Pulse Ox 07/29/24 08:00 07/29/24 07:00 99 07/29/24 02:36 99 07/28/24 23:21 98 07/28/24 23:00 98 07/28/24 22:01 97 07/28/24 19:28 96 07/28/24 18:00 97 07/28/24 16:00 97 07/28/24 13:21 95 07/28/24 12:32 99 Intake and Output 07/28/24 07/29/24 07/29/24 22:59 06:59 14:59 Other: Weight 91.626 kg Results 07/29/24 03:21 07/29/24 03:21 Cardiac Enzymes 07/28/24 07/28/24 07/28/24 Range/Units 12:28 12:28 15:45 AST 22 (17-59) U/L Troponin I <0.012 <0.012 (0.000-0.034) ng/mL 07/28/24 07/29/24 Range/Units 18:25 03:21 AST 13 L (17-59) U/L Troponin I <0.012 (0.000-0.034) ng/mL Coagulation 07/28/24 Range/Units 12:28 PT 10.7 (10.0-12.5) sec APTT 23.9 (22.0-30.0) sec Lipids 07/29/24 Range/Units 03:21 Triglycerides 112.00 (0.00-149.00) mg/dL Cholesterol 192.00 (0.00-200.00) mg/dL HDL Cholesterol 51.40 (40.00-60.00) mg/dL Cholesterol/HDL Ratio 3.74 Ratio CBC 07/28/24 07/29/24 Range/Units 12:28 03:21 WBC 7.9 6.94 (3.8-10.6) k/uL RBC 4.97 4.54 (4.30-5.90) m/uL Hgb 15.2 14.0 (13.0-17.5) gm/dL Hct 48.5 42.4 (39.0-53.0) % Plt Count 214 170 (150-450) k/uL Comprehensive Metabolic Panel 07/28/24 07/29/24 Range/Units 12:28 03:21 Sodium 139 141 (137-145) mmol/L Potassium 4.7 4.3 (3.5-5.1) mmol/L Chloride 107 109 (98-107) mmol/L Carbon Dioxide 30 23.5 (22-30) mmol/L BUN 14 10.0 (9-20) mg/dL Creatinine 0.87 0.8 (0.66-1.25) mg/dL Glucose 95 96 (74-99) mg/dL Calcium 9.3 8.9 (8.4-10.2) mg/dL AST 22 13 L (17-59) U/L ALT 16 14 (4-49) U/L Alkaline Phosphatase 45 43 (38-126) U/L Total Protein 6.4 5.3 L (6.3-8.2) g/dL Albumin 4.1 3.8 (3.5-5.0) g/dL Current Medications Generic Name Dose Route Start Last Admin Trade Name Himaq PRN Reason Stop Dose Admin Hydrocodone Bitart/Acetaminophen 1 each 07/28/24 18:00 07/29/24 08:55 Hydrocodone/Apap 10-325mg 1 Each Tab PO 1 each QID YULIA Administration Albuterol Sulfate 2.5 mg 07/28/24 14:50 Albuterol Nebulized 2.5 Mg/3 Ml INHALATION RT-QID PRN Shortness Of Breath Alprazolam 1 mg 07/28/24 14:50 Alprazolam 1 Mg Tab PO TID PRN Anxiety Atorvastatin Calcium 40 mg 07/28/24 21:00 07/28/24 21:59 Atorvastatin 40 Mg Tab PO 40 mg HS YULIA Administration Budesonide/Formoterol Fumarate 2 puff 07/29/24 08:00 07/29/24 08:16 Symbicort 80-4.5 Mcg Inhaler INHALATION 2 puff RT-BID YULIA Administration Enoxaparin Sodium 40 mg 07/29/24 09:00 07/29/24 08:55 Enoxaparin 40 Mg/0.4 Ml Syringe SQ Not Given DAILY YULIA Gabapentin 800 mg 07/28/24 14:50 Gabapentin 400 Mg Cap PO TID PRN nerve pain Ipratrop[place] 0.5 mg 07/29/24 08:00 07/29/24 08:16 Ipratropium 0.5 Mg/2.5 Ml Nebu INHALATION 0.5 mg RT-QID YULIA Administration Loratadine 10 mg 07/28/24 14:50 Loratadine 10 Mg Tab PO DAILY PRN Allergy Symptoms Nitroglycerin 0.4 mg 07/28/24 14:04 Nitroglycerin Sl Tabs 0.4 Mg Tab SUBLINGUAL Q5M PRN Chest Pain Pantoprazole Sodium 40 mg 07/29/24 07:30 07/29/24 05:50 Pantoprazole 40 Mg Tablet PO 40 mg [id number] YULIA Administration Intake and Output 07/28/24 07/29/24 07/29/24 22:59 06:59 14:59 Other: Weight 91.626 kg 07/29/24 03:21 07/29/24 03:21
[2024-07-29] MEDS: NICOTINE 21MG/24HR PATCH TRANSDERM SCH (14:57)
--- NOTE | 2024-07-29 17:29 | CA ---
Transthoracic Echo Report Name: Daron Matthew Age: 59 Gender: M : 1965 Exam Date: 07/29/2024 12:11 Exam Location: [place] Echo Ht (in): 74 Wt (lb): 202 Ordering Physician: Kaitlynn Cross Attending/Referring Phys: [id number], Tay Combine Mechanic Pat Gomez, VIDYA Procedure CPT: Indications: LV function Cardiac Hx: Technical Quality: Fair Contrast 1: Total Dose (mL): Contrast 2: Total Dose (mL): MEASUREMENTS (Male / Female) Normal Values 2D ECHO LV Diastolic Diameter PLAX 5.9 cm 4.2 - 5.9 / 3.9 - 5.3 cm LV Systolic Diameter PLAX 4.2 cm IVS Diastolic Thickness 1.4 cm 0.6 - 1.0 / 0.6 - 0.9 cm LVPW Diastolic Thickness 1.3 cm 0.6 - 1.0 / 0.6 - 0.9 cm LV Relative Wall Thickness 0.4 LA Systolic Diameter LX 4.4 cm 3.0 - 4.0 / 2.7 - 3.8 cm LV Diastolic Volume MOD 4C 122.2 cm??? LV Systolic Volume MOD 4C 44.1 cm??? LV Ejection Fraction MOD 4C 63.9 % LV Cardiac Index MOD 4C 1990.9 cm???/min???m??? LV Diastolic Length 4C 9.5 cm LV Systolic Length 4C 7.3 cm LV Diastolic Volume MOD 2C 141.3 cm??? LV Systolic Volume MOD 2C 59.6 cm??? LV Ejection Fraction MOD 2C 57.8 % LV Cardiac Index MOD 2C 2082.8 cm???/min???m??? LV Diastolic Length 2C 8.9 cm LV Systolic Length 2C 7.6 cm M-MODE Aortic Root Diameter MM 3.7 cm DOPPLER AV Peak Velocity 157.7 cm/s AV Peak Gradient 10.0 mmHg Mitral E Point Velocity 70.9 cm/s Mitral A Point Velocity 63.1 cm/s Mitral E to A Ratio 1.1 MV Deceleration Time 247.7 ms MV E' Velocity 8.2 cm/s Mitral E to MV E' Ratio 8.6 TR Peak Velocity 250.9 cm/s TR Peak Gradient 25.2 mmHg Right Ventricular Systolic Press 35.2 mmHg FINDINGS Left Ventricle Left ventricular ejection fraction is estimated at 55-60 %. Mildly increased septal wall thickness. Left ventricular cavity size normal. Normal left ventricular wall motion. Right Ventricle Normal right ventricular size and function. Mild pulmonary hypertension. Right Atrium Normal right atrial size. No right atrial thrombus or mass seen. Left Atrium Mildly increased left atrial diameter. No left atrial thrombus or mass present. Mitral Valve Structurally normal mitral valve. No mitral stenosis, regurgitation or prolapse. Aortic Valve Trileaflet aortic valve. No aortic valve stenosis or regurgitation. Tricuspid Valve Structurally normal tricuspid valve. Mild tricuspid regurgitation. Pulmonic Valve Pulmonic valve not well visualized. Pericardium No pericardial or pleural effusion. Aorta Normal size aortic root and proximal ascending aorta. CONCLUSIONS Normal LV function Previewed by: Dr. Armaan Amos MD (Electronically Signed) Final Date: 29 July 2024 17:29
--- NOTE | 2024-07-29 17:33 | CA ---
Stress Echo Report Daron Matthew Age: 59 Gender: M : 1965 Exam Date: 07/29/2024 11:53 Exam Location: [place] Stress Ht (in): 74 Wt (lb): 202 Ordering Physician: Kaitlynn Cross Referring Physician: [id number] Java Software Architect: Pat Gomez RDCS Technologist Procedure CPT: Indication: CP ICD-9 Codes: Rhythm: Patient History: Cardiac Medications: SEE CHART Medications in past 24 hours: Contrast: N/A Stress Results Protocol: Jorge Total dose(mL): NA Exercise Duration (min:sec): 8:[address] Depression (mm): Angina Score: Olivas Score: METS: 10.3 Resting HR: 63 Resting BP: 103 / 51 Peak HR: 110 Peak BP: 171 / 59 Max Predicted HR: 163 67 % Max Predicted HR Target HR: 139 Double Product: [id number] Stress Summary: BP Response: Reason for Termination: Maximal effort/unable to continue Cardiac Symptoms: NO SYMPTOMS ECG Analysis Resting ECG: Normal sinus rhythm normal axis normal intervals Stress ECG: Patient exercised on Jorge protocol for 8 minutes achieving 67% of predicted maximal heart rate without chest pain or diagnostic ST segment depression Arrhythmia: Echo Analysis Resting Echo: Normal Peak Echo Analysis: Normal hyperdynamic response MEASUREMENTS (Male/Female) Normal Values CONCLUSIONS Good exercise tolerance No evidence of ischemia at 67% of predicted maximal heart rate Dr. Armaan Amos MD (Electronically Signed) Final Date: 29 July 2024 17:32
[2024-07-29] MEDS: ALPRAZolam 1 MG TAB PO PRN (21:37)
[2024-07-30] MEDS ORDERED: NICOTINE 21MG/24HR PATCH TRANSDERM SCH (09:00)
--- NOTE | 2024-07-30 09:33 | P.PN ---
Subjective HISTORY OF PRESENT ILLNESS: This is a 59-year-old male with a past medical history significant for mild nonobstructive CAD and hyperlipidemia. Patient follows in the office with Dr. Amos. We have been asked to see the patient in consultation for chest pain. Patient examined at the bedside. Patient presented to the hospital with a chief complaint of chest discomfort. Patient states he has been under significant amount of stress lately. His girlfriend is critically ill in the intensive care unit and is supposed to be getting a trach performed. He states he has been getting pains in the middle of his chest along with a headache over the past few days. He denies any radiation of the pain. Denies any shortness of breath. DIAGNOSTICS: - EKG reveals sinus mechanism with no signs of acute ischemia. Nonspecific ST-T wave changes. - Chest xray negative for acute process. COPD changes. - Laboratory data: WBC 6.94. Hemoglobin 14.0. Platelet count 170. D-dimer 0.25. Sodium 141. Potassium 4.3. BUN 10. Creatinine 0.80. Troponin negative x 3. - Current home cardiac medications include Lipitor 40 mg at night - Most recent echocardiogram obtained in November 2019 revealed ejection fraction 50 to 55%, mild MR, mild TR 07/30/2024 Patient is status post stress echocardiogram yesterday which was negative for ischemia. Patient denies any further chest pain or pressure. Denies shortness of breath. Vital signs are stable. PHYSICAL EXAM: VITAL SIGNS: Reviewed. GENERAL: Well-developed in no acute distress. HEENT: Head is normocephalic. Pupils are equal, round. Sclerae anicteric. Mucous membranes of the mouth are moist. Neck supple. No JVD or thyromegaly LUNGS: Respirations even and unlabored. Lungs essentially clear to auscultation bilaterally. HEART: Regular rate and rhythm. S1 and S2 heard. ABDOMEN: Soft. Nondistended. Nontender. EXTREMITIES: Normal range of motion. No clubbing or cyanosis. Peripheral pulses intact. No lower extremity edema NEUROLOGIC: Awake and alert. Oriented x 3. ASSESSMENT: Chest paina status post stress echo which was negative for ischemia History of mild nonobstructive CAD Hyperlipidemia Nicotine dependence PLAN: continue current cardiac medications Patient is stable for discharge home today from a cardiac standpoint We'll sign off. Please reconsult if needed. Nurse practitioner note has been reviewed by physician. Signing provider agrees with the documented findings, assessment, and plan of care documented by GRAIN SAMPLER as a scribe. Objective - Vital Signs Vital signs: Vital Signs Temp 98.3 F 07/30/24 07:00 Pulse 52 L 07/30/24 07:00 Resp 14 07/30/24 07:00 BP 111/71 07/30/24 07:00 Pulse Ox 100 07/30/24 07:00 FiO2 Intake & Output 07/29/24 07/30/24 07/30/24 18:59 06:59 18:59 Intake Total 360 920 0 Balance 360 920 0 Intake: Oral 360 920 0 Other: # Voids 3 3 - Labs CBC & Chem 7: 07/29/24 03:21 07/29/24 03:21
[2024-07-30 14:26] VITALS: BP 114/66; PULSE 51; RESP 16; TEMP 98
--- NOTE | 2024-07-30 15:22 | P.DS ---
Providers Date of admission: 07/28/24 14:06 Expected date of discharge: 07/30/24 Attending physician: Tamiko Madera Primary care physician: Di Mccurdy [facility] Course: Diagnosis on discharge: Episodes of chest pain Bradycardia with abnormal EKG Underlying history of COPD Underlying history of hypertension Previous history of chest pain with cardiac catheterization normal more than 10 years ago per patient Previous history of lower extremity DVT patient was maintained on anticoagulation 5 years ago per patient Underlying history of degenerative disc disease maintained on [place] Underlying history of gastroesophageal reflux disease Hospital course: Daron Matthew, is a 59-year-old male who presented to [facility] emergency room with a chief complaint of chest pain. Patient describes episodes of chest pressure on and off over the last week radiating to the left arm that is increased in severity and duration in the last 2 days, he also had mild shortness of breath. He states that he is under a lot of stress, with multiple family members hospitalized in different hospitals, including his girlfriend who is hospitalized in the ICU in this hospital. He was evaluated in the emergency room vital examination on presentation revealed a temperature of 98.2 pulse 56 respiration 18 blood pressure 143/87 pulse ox 99% on room air Laboratory data revealed a white blood count of 7.9 hemoglobin 15.2 platelet count 214 D-dimer 0.25 BUN 14 creatinine 0.87 troponin level less than 0.012 Testing in the emergency room revealed chest x-ray revealed COPD changes no acute cardiopulmonary process. EKG revealed sinus bradycardia with Q wave in V1 and V2 might represent septal infarction. Patient was admitted to medical floor for further evaluation and treatment Past medical history is significant for patient had previous episodes of chest pain, he used to see Dr. Alejandro hitch technician, he had a heart catheterization more than 10 years ago, he denies having any angioplasty or stent placement, he had history of DVT more than 5 years ago and was on anticoagulation at that time. On review of systems there is no fever or chills no headache or dizziness, no cough no nausea or vomiting no abdominal pain no diarrhea no blood in the stools no burning with urination no frequency or urgency and no hematuria. There is no weakness or numbness in any of the extremities no change in vision speech or gait. On 07/30/2024 patient was seen and examined on the medical floor he is alert and oriented x 3 in no apparent distress, he denies any new episodes of chest pain, he was evaluated by cardiology, he underwent an echocardiogram and a stress echo, results were within normal limits, patient was cleared by cardiology to be discharged to home, he was counseled in length in regard to smoking cessation, he was given a prescription for nicotine patches, and a prescription for sublingual nitroglycerin. Follow-up with cardiology in 1-2 weeks, follow-up with Dr. mccurdy within one week Patient Condition at Discharge: Fair Plan - Discharge Summary New Discharge Prescriptions: New Nicotine 21Mg/24Hr Patch [Habitrol] 1 patch TRANSDERM DAILY 30 Days #30 patch Nitroglycerin Sl Tabs [Nitrostat] 0.4 mg SUBLINGUAL Q5M PRN 30 Days #25 tab PRN Reason: Chest Pain Continue HYDROcodone/APAP 10-325MG [[place] 10-325] 1 tab PO QID Albuterol Sulfate [Albuterol Sulfate Hfa] 2 puff INHALATION RT-Q6H PRN PRN Reason: Shortness Of Breath Atorvastatin [Lipitor] 40 mg PO HS Albuterol Nebulized [Ventolin Nebulized] 2.5 mg INHALATION RT-QID PRN PRN Reason: Shortness Of Breath ALPRAZolam [Xanax] 1 mg PO TID PRN PRN Reason: Anxiety Gabapentin 800 mg PO TID PRN PRN Reason: nerve pain Fluticasone/Umeclidin/Vilanter [Trelegy Ellipta 200-62.5-25] 1 puff INHALATION RT-DAILY Loratadine [Claritin] 10 mg PO DAILY PRN PRN Reason: Allergy Symptoms Discharge Medication List HYDROcodone/APAP 10-325MG [[place] 10-325] 1 tab PO QID 09/03/16 [History] Albuterol Sulfate [Albuterol Sulfate Hfa] 2 puff INHALATION RT-Q6H PRN 11/19/23 [History] ALPRAZolam [Xanax] 1 mg PO TID PRN 07/28/24 [History] Albuterol Nebulized [Ventolin Nebulized] 2.5 mg INHALATION RT-QID PRN 07/28/24 [History] Atorvastatin [Lipitor] 40 mg PO HS 07/28/24 [History] Fluticasone/Umeclidin/Vilanter [Trelegy Ellipta 200-62.5-25] 1 puff INHALATION RT-DAILY 07/28/24 [History] Gabapentin 800 mg PO TID PRN 07/28/24 [History] Loratadine [Claritin] 10 mg PO DAILY PRN 07/28/24 [History] Nicotine 21Mg/24Hr Patch [Habitrol] 1 patch TRANSDERM DAILY 30 Days #30 patch 07/30/24 [Rx] Nitroglycerin Sl Tabs [Nitrostat] 0.4 mg SUBLINGUAL Q5M PRN 30 Days #25 tab 07/30/24 [Rx] Follow up Appointment(s)/Referral(s): Di Mccurdy MD [Primary Care Provider] - 1-2 days Armaan Amos MD [STAFF PHYSICIAN] - 1 Week
== END 2024-07-30 15:35 | disposition home or self-care (01) ==
LOC: EC 12:05 → 6NMEDSUR 14:06
PROVIDERS: ADMIT Internal Medicine; ATTEND Internal Medicine
DX: R07.89 Other chest pain (principal); R00.1 Bradycardia, unspecified; J44.9 Chronic obstructive pulmonary disease, unspecified; K21.9 Gastro-esophageal reflux disease without esophagitis; E78.5 Hyperlipidemia, unspecified; F31.9 Bipolar disorder, unspecified; F41.9 Anxiety disorder, unspecified; I25.10 Atherosclerotic heart disease of native coronary artery without angina pectoris; I10 Essential (primary) hypertension; F17.200 Nicotine dependence, unspecified, uncomplicated; Z86.718 Personal history of other venous thrombosis and embolism; Z79.51 Long term (current) use of inhaled steroids; Z79.899 Other long term (current) drug therapy; Z91.040 Latex allergy status
CPT/HCPCS: 36415; 71046; 80053; 80061; 83735; 84484; 85025; 85379; 85610; 85730; 93005; 93306; 93351; 94640; 99285

== ENCOUNTER 2024-11-19 21:34 | Observation (INO) | payer MEDICARE, OTHER ==
[2024-11-19] MEDS: MORPHINE SULFATE 4 MG/ML SYRINGE IV STA (22:41)
[2024-11-19] MEDS: ONDANSETRON 4 MG/2 ML VIAL IVP STA (22:41)
[2024-11-19] MEDS: SODIUM CHLORIDE 0.9% 500 ML 500 ML IV STA (22:41)
[2024-11-19 22:53] LABS: Basophils # (A) 0.1 k/uL (0-0.2); Basophils % (A) 1 %; Eosinophils # (A) 0.1 k/uL (0-0.7); Eosinophils % (A) 1 %; HCT 46.5 % (39.0-53.0); HGB 15.6 gm/dL (13.0-17.5); Lymphocytes # (A) 2.9 k/uL (1.0-4.8); Lymphocytes % (A) 30 %; MCH 31.9 pg (25.0-35.0); MCHC 33.4 g/dL (31.0-37.0); MCV 95.5 fL (80.0-100.0); Mean Platelet Volume 7.1; Monocytes # (A) 0.6 k/uL (0-1.0); Monocytes % (A) 6 %; Neutrophils # (A) 5.9 k/uL (1.3-7.7); Neutrophils % (A) 60 %; Platelet Count 206 k/uL (150-450); RBC 4.87 m/uL (4.30-5.90); RDW 12.7 % (11.5-15.5); WBC 9.8 k/uL (3.8-10.6)
[2024-11-19 22:59] LABS: ALT 18 U/L (4-49); AST 18 U/L (17-59); African American GFR (CKD) >90 (>60 ml/min/1.73 sqM); Albumin 4.1 g/dL (3.5-5.0); Alkaline Phosphatase 45 U/L (38-126); Anion Gap 7 mmol/L; Blood Urea Nitrogen 16 mg/dL (9-20); Calcium 9.4 mg/dL (8.4-10.2); Carbon Dioxide 27 mmol/L (22-30); Chloride 104 mmol/L (98-107); Glucose 84 mg/dL (74-99); Lipase 74 U/L (23-300); Magnesium 2.2 mg/dL (1.6-2.3); Non-African American GFR(CKD) >90 (>60 ml/min/1.73 sqM); Potassium 4.1 mmol/L (3.5-5.1); Sodium 138 mmol/L (137-145); Total Bilirubin 0.3 mg/dL (0.2-1.3)
[2024-11-19 23:08] LABS: INR 1.1 (<1.2); NT-Pro-B-Type Natriuretic Pept 34 pg/mL; Prothrombin Time 11.7 sec (10.0-12.5)
--- NOTE | 2024-11-19 23:13 | ED ---
General Adult HPI - General Chief complaint: Chest Pain Stated complaint: Chest Pain Time Seen by Provider: 11/19/24 21:36 Source: patient, EMS Mode of arrival: EMS Limitations: no limitations - History of Present Illness Initial comments: Patient is a 59-year-old gentleman with past medical history of smoking, CAD, and prior DVT presenting today for shortness of breath, left shoulder pain and chest pain. Patient states that his shortness of breath has been ongoing for the last month, he was seen at [facility] 1 month ago and was diagnosed with bronchitis and ultimately discharged from the emergency department. States he has had a cough of sputum since then and persistent shortness of breath. Today noticed a "tingling" chest discomfort across the front of his chest and down both of his arms. It does not radiate to his back. He took a sublingual nitroglycerin and states his pain improved though he is unsure if his pain was improving prior to administration of sublingual nitro. Currently only endorses left shoulder pain but states this is a chronic pain for him. Takes [place] at home for this. Endorses feeling hot and cold, but no measured fevers. Endorses left lower extremity swelling which is where patient's prior DVT was. States this happened 3 years ago and he is currently off of anticoagulation. Denies hemoptysis. - Related Data Home Medications Medication Instructions Recorded Confirmed HYDROcodone/APAP 10-325MG [[place] 1 tab PO QID 09/03/16 11/20/24 10-325] ALPRAZolam [Xanax] 1 mg PO TID PRN 07/28/24 11/20/24 Albuterol Nebulized [Ventolin 2.5 mg INHALATION RT-QID PRN 07/28/24 11/20/24 Nebulized] Atorvastatin [Lipitor] 40 mg PO DAILY 07/28/24 11/20/24 Fluticasone/Umeclidin/Vilanter 1 puff INHALATION RT-DAILY 07/28/24 11/20/24 [Trelegy Ellipta 200-62.5-25] Gabapentin 800 mg PO TID PRN 07/28/24 11/20/24 Loratadine [Claritin] 10 mg PO DAILY 07/28/24 11/20/24 Omeprazole [PriLOSEC] 20 mg PO DAILY 11/20/24 11/20/24 buPROPion HCL [Wellbutrin SR] 200 mg PO BID 11/20/24 11/20/24 carisoprodoL [Soma] 350 mg PO QID PRN 11/20/24 11/20/24 Previous Rx's Medication Instructions Recorded Nitroglycerin Sl Tabs [Nitrostat] 0.4 mg SUBLINGUAL Q5M PRN 30 Days 07/30/24 #25 tab Allergies Allergy/AdvReac Type Severity Reaction Status Date / Time adhesive tape Allergy Rash/Hives Verified 11/20/24 07:44 latex Allergy Rash/Hives Verified 11/20/24 07:44 Review of Systems ROS Statement: Those systems with pertinent positive or pertinent negative responses have been documented in the HPI. ROS Other: All systems not noted in ROS Statement are negative. Constitutional: Reports: chills. Denies: fever Respiratory: Reports: cough, dyspnea. Denies: hemoptysis Cardiovascular: Reports: chest pain, dyspnea on exertion Gastrointestinal: Denies: abdominal pain, nausea, vomiting, melena, hematochezia Musculoskeletal: Reports: arthralgia (left shoulder pain) Neurological: Denies: weakness, numbness Past Medical History Past Medical History: Chest Pain / Angina, COPD, Deep Vein Thrombosis (DVT), GERD/Reflux, Hyperlipidemia, Osteoarthritis (OA) Additional Past Medical History / Comment(s): Hx Quick's Esophagus. , Back and knee pain with multiple surgeries, on scheduled norco for chronic pain History of Any Multi-Drug Resistant Organisms: None Reported Past Surgical History: Orthopedic Surgery Additional Past Surgical History / Comment(s): RIGHT KNEE ARTHROSCOPY, LEFT KNEE SURGERY X2, COLONOSCOPY, EGD. 12/15/19 left neck biopsy to rule out cancer Past Anesthesia/Blood Transfusion Reactions: Previous Problems w/ Anesthesia Additional Past Anesthesia/Blood Transfusion Reaction / Comment(s): WOKE UP DURING SURGERY, CLAUSTROPHOBIC. no previous blood transfusion Past Psychological History: Anxiety, Bipolar, Depression Smoking Status: Current every day smoker Past Alcohol Use History: Rare Past Drug Use History: Marijuana - Past Family History Mother Family Medical History: Cancer Additional Family Medical History / Comment(s): LUNG AND BREAST CANCER General Exam - General Exam Comments Initial Comments: PE: CONSTITUTIONAL: No apparent distress, chronically ill-appearing, nontoxic SKIN: Warm, dry, no jaundice, hives or petechiae EYES: Pupils are equally round, extraocular movements intact without nystagmus, clear conjunctiva, non-icteric sclera HENT: Normocephalic, atraumatic, moist mucus membranes, oropharynx clear without exudates NECK: , Full range of motion, normal appearance PULMONARY: Mild tachypnea, clear to auscultation without wheezes, rhonchi, or rales, normal excursion, no accessory muscle use and no stridor CARDIOVASCULAR: Regular rate, rhythm, normal S1 and S2. No appreciated murmurs, rubs or gallops. Strong radial pulses with intact distal perfusion. No lower extremity edema GASTROINTESTINAL: Soft, active bowel sounds throughout, non-tender, non- distended, no palpable masses, no rebound or guarding. No hepatosplenomegaly GENITOURINARY: MUSCULOSKELETAL: Extremities have no gross deformity, no edema, redness, or swelling. No calf swelling. Venous prominence in the left lower extremity NEUROLOGIC:_a/o x 3, GCS 15, normal mentation and speech. Moves all extremities x 4 without motor or sensory deficit PSYCHIATRIC:_normal mood and affect, thought process is clear and linear Limitations: no limitations Course Vital Signs 11/19/24 11/19/24 11/19/24 21:35 22:45 23:29 Temperature 98.4 F Pulse Rate 60 58 L 55 L Respiratory 17 16 15 Rate Blood Pressure 134/84 123/82 122/85 O2 Sat by Pulse 99 98 97 Oximetry 11/20/24 11/20/24 11/20/24 00:06 02:07 04:37 Temperature 97.7 F 98.1 F Pulse Rate 57 L 54 L 50 L Respiratory 16 15 12 Rate Blood Pressure 112/64 103/67 105/58 O2 Sat by Pulse 97 97 98 Oximetry 11/20/24 11/20/24 11/20/24 09:12 10:49 13:17 Temperature 98.7 F Pulse Rate 57 L 57 L 57 L Respiratory 17 18 18 Rate Blood Pressure 120/79 118/81 116/83 O2 Sat by Pulse 98 97 97 Oximetry 11/20/24 11/20/24 14:09 14:53 Temperature 98.8 F Pulse Rate 55 L 62 Respiratory 18 18 Rate Blood Pressure 119/80 121/88 O2 Sat by Pulse 97 98 Oximetry EKG Findings - EKG Comments: EKG Findings:: There is significant artifact limiting interpretation, appears to be atrial fibrillation however potentially sinus rhythm with respiratory variation, rate 60 bpm QT/QTc 398/398 ms, left axis deviation no STEMI. Compared to EKG performed on , there is significant artifact throughout this EKG, limiting comparison ST segment is inverted in lead I when compared to prior new incomplete right bundle branch block, no new ST elevations or depr essions when compared to prior. Repeat EKG performed at 2320 due to significant artifact on initial EKG, repeat EKG shows sinus bradycardia, left axis deviation, no new ST elevations or depressions, no STEMI Medical Decision Making - Medical Decision Making Was pt. sent in by a medical professional or institution (, PA, ALMOND BLANCHER, urgent care, hospital, or usp...) When possible be specific @ -no Did you speak to anyone other than the patient for history (EMS, parent, family, police, friend...)? What history was obtained from this source @ -No Did you review nursing and triage notes (agree or disagree)? Why? @ -I reviewed and agree with nursing and triage notes Were old charts reviewed (outside hosp., previous admission, EMS record, old EKG, old radiological studies, urgent care reports/EKG's, usp records)? Report findings Medical records reviewed, stress echo performed July of this year overall unremarkable Differential Diagnosis (chest pain, altered mental status, abdominal pain women, abdominal pain men, vaginal bleeding, weakness, fever, dyspnea, syncope, headache, dizziness, GI bleed, back pain, seizure, CVA, palpatations, mental health, musculoskeletal)? @Differential Chest Pain: Stable Angina, Unstable Angina, STEMI, NSTEMI Aortic Dissection, pericarditis, pleurisy, chostochondirits, Pneumothorax, Musculoskeletal, Esophageal Spasm GERD, Cholecystitis, Pancreatitis, Zoster, this is not meant to be an all- inclusive list. EKG interpreted by me (3pts min.). @ -As above X-rays interpreted by me (1pt min.). @ -None done CT interpreted by me (1pt min.). Personally reviewed CT PE, I see no evidence of obvious, massive or submassive PE, additionally I do not see evidence of consolidations, does appear to have left ventricular hypertrophy and fibrotic changes of the lungs] What testing was considered but not performed or refused? (CT, X-rays, U/S, labs)? Why? @ -None What meds were considered but not given or refused? Why? @ -None Did you discuss the management of the patient with other professionals (professionals i.e. , PA, ALMOND BLANCHER, lab, RT, psych nurse, social work lecturer, woodworking machine operator, teacher, intelligence officer, director of casework department)? Give summary @ -No Was smoking cessation discussed for >3mins.? @ -No Was critical care preformed (if so, how long)? @ -No Were there social determinants of health that impacted care today? How? (Homelessness, low income, unemployed, alcoholism, drug addiction, transpo rtation, low edu. Level, literacy, decrease access to med. care, fdc, rehab)? @ -No Was there de-escalation of care discussed even if they declined (Discuss DNR or withdrawal of care, Hospice)? @ -No What co-morbidities impacted this encounter? (DM, HTN, Smoking, COPD, CAD, Cancer, CVA, ARF, Chemo, Hep., AIDS, mental health diagnosis, sleep apnea, morbid obesity)? Current smoker, history of DVT hyperlipidemia CAD Was patient admitted / discharged? Hospital course, mention meds given and route, prescriptions, significant lab abnormalities, going to OR and other pertinent info. @Admission Patient is a 59-year-old gentleman with a past medical history ofCOPD, DVT, GERD, hyperlipidemia, CAD not on anticoagulation presenting today for "tingling across the front of his chest, left shoulder pain and shortness of breath. On my assessment patient is chronically ill-appearing but in no acute distress, nontoxic, mildly tachypneic with conversation, lungs are clear to auscultation bilaterally without focal breath sounds or wheezes, normal S1-S2 on cardiac exam with 2+ radial and DP pulses, does have prominence of the left lower extremity veins no calf swelling or tenderness, abdomen soft and nontender. Patient did have stress test done in July that was unremarkable. Due to patient's elevated Wells score 4.5, lungs clear to auscultation with associated shortness of breath will obtain CT PE study in addition to comprehensive labs. Anticipate admission. Labs and imaging reviewed. Grossly within normal limits. Abnormal values not concerning for acute pathology related to presenting complaint. On reassessment patient endorsed improvement of pain, is currently comfortable appearing discussed plan for admission for observation due to chest pain. Patient agreeable with plan of care. Case discussed with Dr. Madera, he kindly accepts patient for admission. Undiagnosed new problem with uncertain prognosis? @ -No Drug Therapy requiring intensive monitoring for toxicity (Heparin, Nitro, Insulin, Cardizem)? @ -No Were any procedures done? @ -No Diagnosis/symptom? @Chest pain, shortness of breath Acute, or Chronic, or Acute on Chronic? @ -Acute, acute on chronic Uncomplicated (without systemic symptoms) or Complicated (systemic symptoms)? @ -Complicated Side effects of treatment? @ -No Exacerbation, Progression, or Severe Exacerbation? @ -No Poses a threat to life or bodily function? How? (Chest pain, [place], ID, pneumonia, PE, COPD, DKA, ARF, appy, cholecystitis, CVA, Diverticulitis, Homicidal, Suicidal, threat to staff... and all critical care pts) @Yes, if symptoms are secondary to ACS is potentially life-threatening - Lab Data Result diagrams: 11/19/24 22:19 11/19/24 22:19 Lab Results 11/19/24 11/19/24 11/19/24 Range/Units 22:19 22:19 22:19 WBC 9.8 (3.8-10.6) k/uL RBC 4.87 (4.30-5.90) m/uL Hgb 15.6 (13.0-17.5) gm/dL Hct 46.5 (39.0-53.0) % MCV 95.5 (80.0-100.0) fL MCH 31.9 (25.0-35.0) pg MCHC 33.4 (31.0-37.0) g/dL RDW 12.7 (11.5-15.5) % Plt Count 206 (150-450) k/uL MPV 7.1 Neutrophils % 60 % Lymphocytes % 30 % Monocytes % 6 % Eosinophils % 1 % Basophils % 1 % Neutrophils # 5.9 (1.3-7.7) k/uL Lymphocytes # 2.9 (1.0-4.8) k/uL Monocytes # 0.6 (0-1.0) k/uL Eosinophils # 0.1 (0-0.7) k/uL Basophils # 0.1 (0-0.2) k/uL PT 11.7 (10.0-12.5) sec INR 1.1 (<1.2) APTT 22.0 (22.0-30.0) sec Sodium 138 (137-145) mmol/L Potassium 4.1 (3.5-5.1) mmol/L Chloride 104 (98-107) mmol/L Carbon Dioxide 27 (22-30) mmol/L Anion Gap 7 mmol/L BUN 16 (9-20) mg/dL Creatinine 0.86 (0.66-1.25) mg/dL Est GFR (CKD-EPI)AfAm >90 (>60 ml/min/1.73 sqM) Est GFR (CKD-EPI)NonAf >90 (>60 ml/min/1.73 sqM) Glucose 84 (74-99) mg/dL Calcium 9.4 (8.4-10.2) mg/dL Magnesium 2.2 (1.6-2.3) mg/dL Total Bilirubin 0.3 (0.2-1.3) mg/dL AST 18 (17-59) U/L ALT 18 (4-49) U/L Alkaline Phosphatase 45 (38-126) U/L Troponin I (0.000-0.034) ng/mL NT-Pro-B Natriuret Pep 34 pg/mL Total Protein 6.0 L (6.3-8.2) g/dL Albumin 4.1 (3.5-5.0) g/dL Lipase 74 (23-300) U/L 11/19/24 Range/Units 22:19 WBC (3.8-10.6) k/uL RBC (4.30-5.90) m/uL Hgb (13.0-17.5) gm/dL Hct (39.0-53.0) % MCV (80.0-100.0) fL MCH (25.0-35.0) pg MCHC (31.0-37.0) g/dL RDW (11.5-15.5) % Plt Count (150-450) k/uL MPV Neutrophils % % Lymphocytes % % Monocytes % % Eosinophils % % Basophils % % Neutrophils # (1.3-7.7) k/uL Lymphocytes # (1.0-4.8) k/uL Monocytes # (0-1.0) k/uL Eosinophils # (0-0.7) k/uL Basophils # (0-0.2) k/uL PT (10.0-12.5) sec INR (<1.2) APTT (22.0-30.0) sec Sodium (137-145) mmol/L Potassium (3.5-5.1) mmol/L Chloride (98-107) mmol/L Carbon Dioxide (22-30) mmol/L Anion Gap mmol/L BUN (9-20) mg/dL Creatinine (0.66-1.25) mg/dL Est GFR (CKD-EPI)AfAm (>60 ml/min/1.73 sqM) Est GFR (CKD-EPI)NonAf (>60 ml/min/1.73 sqM) Glucose (74-99) mg/dL Calcium (8.4-10.2) mg/dL Magnesium (1.6-2.3) mg/dL Total Bilirubin (0.2-1.3) mg/dL AST (17-59) U/L ALT (4-49) U/L Alkaline Phosphatase (38-126) U/L Troponin I <0.012 (0.000-0.034) ng/mL NT-Pro-B Natriuret Pep pg/mL Total Protein (6.3-8.2) g/dL Albumin (3.5-5.0) g/dL Lipase (23-300) U/L Disposition Clinical Impression: Chest pain, Shortness of breath Dis[facility] Condition: Stable
[2024-11-19] MEDS ORDERED: MAG HYDROX/AL HYDROX/SIMETH 30 ML CUP PO PRN (23:47)
[2024-11-19] MEDS ORDERED: ONDANSETRON 4 MG/2 ML VIAL IVP PRN (23:47)
[2024-11-19] MEDS ORDERED: CALCIUM CARBONATE 500 MG CHEWABLE PO PRN (23:47)
[2024-11-19] MEDS ORDERED: NALOXONE 0.4 MG/ML 1 ML VIAL IV PRN (23:47)
[2024-11-19] MEDS ORDERED: HYDROcodone/APAP 5-325MG 1 EACH TAB PO PRN (23:47)
[2024-11-19] MEDS ORDERED: NITROGLYCERIN SL TABS 0.4 MG TAB SUBLINGUAL PRN (23:51)
[2024-11-19] MEDS ORDERED: ALBUTEROL NEBULIZED 2.5 MG/3 ML INHALATION PRN ×2 (23:51)
--- NOTE | 2024-11-19 23:53 | US ---
EXAMINATION TYPE: US venous doppler duplex LE LT DATE OF EXAM: 11/19/2024 10:19 PM COMPARISON: 11/19/2023 US, CT 11/19/2024 CLINICAL INDICATION: Male, 59 years old with history of LLE swelling, prior DVT; Patient states hx of DVT years ago. not on thinners. pain and swelling, Pain TECHNIQUE: The lower extremity deep venous system is examined utilizing real time linear array sonog alexandre with graded compression, color doppler sonography, and spectral doppler. SIDE PERFORMED: Left FINDINGS: VESSELS IMAGED: Common Femoral Vein Deep Femoral Vein Greater Saphenous Vein * Femoral Vein Popliteal Vein Small Saphenous Vein * Proximal Calf Veins (* superficial vessels) Left Leg: Appears negative for DVT, Color Doppler imaging shows patency of the vessels. Spectral wav eforms are within normal limits. Distal femoral vein compression deferred per patient IMPRESSION: No ultrasound evidence for deep venous thrombosis. [facility], , 11/19/2024 11:51 PM
--- NOTE | 2024-11-19 23:58 | CT ---
EXAMINATION TYPE: CT chest angio for PE DATE OF EXAM: 11/19/2024 10:38 PM COMPARISON: Chest radiograph from same day. CT 06/21/2023 CLINICAL INDICATION: Male, 59 years old with history of prior DVT, tachypnea, LLE swelling; Patient p resents to EC by EMS with r/o sudden chest pain that radiates to the left arm. Patient took 1 SL nitr o which took care of his pain. Patient was also given 324 aspirin by EMS. Patient reports history of OK. TECHNIQUE/CONTRAST: CTA scan of the thorax is performed with IV Contrast, patient injected with 100mL mL of Isovue 370, M IP images are created and reviewed these are created on a separate workstation.. CT DLP: 414.4 mGycm, Automated exposure control for dose reduction was used. FINDINGS: Lungs/Pleura: Scattered calcified granulomas are present. No evidence of focal consolidation, pleural effusion or pneumothorax. Posterior left fat-containing Bochdalek hernia. Flattening of the diaphrag m with barrel-shaped chest. Airway: Large airways are patent. Heart: Heart is within normal limits for size. Vasculature: Respiratory motion is present. There is no evidence for a filling defect within the pulm onary vasculature to suggest acute pulmonary embolism. The pulmonary artery is of normal size. Mediastinum: No gross evidence of adenopathy. Musculoskeletal: Moderate degenerative disc disease changes are present throughout the thoracolumbar spine. Which compression of bowel on vertebral body is similar to prior. Scattered Schmorl's nodes pr esent. Soft Tissues/lymph nodes: Unremarkable. Lower neck: No significant findings. Upper Abdomen: No significant findings. IMPRESSION: 1. No evidence of central pulmonary embolism. Limited evaluation of the segmental and subsegmental b ranches secondary motion. 2. COPD changes. 3. Chronic granulomatous disease with scattered calcified nodules. [facility], , 11/19/2024 11:56 PM
[2024-11-20] MEDS: HYDROcodone/APAP 10-325MG 1 EACH TAB PO SCH (00:03)
[2024-11-20] MEDS: NICOTINE 14MG/24HR PATCH TRANSDERM SCH (00:04)
[2024-11-20] MEDS: ACETAMINOPHEN TAB 325 MG TAB PO PRN (03:12)
[2024-11-20] MEDS ORDERED: GABAPENTIN 400 MG CAP PO PRN (09:29)
[2024-11-20] MEDS ORDERED: ALPRAZolam 1 MG TAB PO PRN (09:29)
[2024-11-20] MEDS ORDERED: carisoprodoL 350 MG TAB PO PRN (09:29)
--- NOTE | 2024-11-20 09:31 | P.HPIM ---
History of Present Illness H&P Date: 11/20/24 Daron Matthew is a 59-year-old male patient of Dr. Mccurdy who presented with complaints of chest pain. Patient reports he was on the phone with his brother when he became short of breath with shoulder and chest pain. Patient also reports he has had intermittent episodes of shortness of breath over the past month and was previously seen at [facility] Patient has a past medical history of ongoing nicotine dependence patient states he smokes 1.5 to 2 packs a day, CAD and previous DVT. EKG completed this bradycardia. Venous Doppler completed showing no evidence for DVT CTA performed showing no evidence for PE. COPD changes. Chronic granulomatous disease with scattered calcified nodules. Lab work showing white blood cell 9.8, hemoglobin 15.6 negative troponins. BNP 34. Current vital signs temp 98.1, heart rate 50, respiratory rate 12, blood pressure 105/58 with a pulse ox of 98% on room air at this time patient will be admitted cardiology and pulmonary services will be consulted. Patient denies chest pain or shortness of breath. Patient denies nausea vomiting or diarrhea. Patient denies any urinary burning or frequency Review of Systems Please refer to HPI otherwise unremarkable Past Medical History Past Medical History: Chest Pain / Angina, COPD, Deep Vein Thrombosis (DVT), GERD/Reflux, Hyperlipidemia, Osteoarthritis (OA) Additional Past Medical History / Comment(s): Hx Quick's Esophagus. , Back and knee pain with multiple surgeries, on scheduled norco for chronic pain History of Any Multi-Drug Resistant Organisms: None Reported Past Surgical History: Orthopedic Surgery Additional Past Surgical History / Comment(s): RIGHT KNEE ARTHROSCOPY, LEFT KNEE SURGERY X2, COLONOSCOPY, EGD. 12/15/19 left neck biopsy to rule out cancer Past Anesthesia/Blood Transfusion Reactions: Previous Problems w/ Anesthesia Additional Past Anesthesia/Blood Transfusion Reaction / Comment(s): WOKE UP DURING SURGERY, CLAUSTROPHOBIC. no previous blood transfusion Past Psychological History: Anxiety, Bipolar, Depression Smoking Status: Current every day smoker Past Alcohol Use History: Rare Past Drug Use History: Marijuana - Past Family History Mother Family Medical History: Cancer Additional Family Medical History / Comment(s): LUNG AND BREAST CANCER Medications and Allergies Home Medications Medication Instructions Recorded Confirmed Type HYDROcodone/APAP 10-325MG [[place] 1 tab PO QID 09/03/16 11/20/24 History 10-325] Albuterol Sulfate [Albuterol 2 puff INHALATION RT-Q6H PRN 11/19/23 11/20/24 History Sulfate Hfa] ALPRAZolam [Xanax] 1 mg PO TID PRN 07/28/24 11/20/24 History Albuterol Nebulized [Ventolin 2.5 mg INHALATION RT-QID PRN 07/28/24 11/20/24 History Nebulized] Atorvastatin [Lipitor] 40 mg PO DAILY 07/28/24 11/20/24 History Fluticasone/Umeclidin/Vilanter 1 puff INHALATION RT-DAILY 07/28/24 11/20/24 History [Trelegy Ellipta 200-62.5-25] Gabapentin 800 mg PO TID PRN 07/28/24 11/20/24 History Loratadine [Claritin] 10 mg PO DAILY 07/28/24 11/20/24 History Nitroglycerin Sl Tabs [Nitrostat] 0.4 mg SUBLINGUAL Q5M PRN 30 Days 07/30/24 11/20/24 Rx #25 tab Omeprazole [PriLOSEC] 20 mg PO DAILY 11/20/24 11/20/24 History buPROPion HCL [Wellbutrin SR] 200 mg PO BID 11/20/24 11/20/24 History carisoprodoL [Soma] 350 mg PO QID PRN 11/20/24 11/20/24 History Allergies Allergy/AdvReac Type Severity Reaction Status Date / Time adhesive tape Allergy Rash/Hives Verified 11/20/24 07:44 latex Allergy Rash/Hives Verified 11/20/24 07:44 Physical Exam Vitals: Vital Signs Temp Pulse Resp BP Pulse Ox 11/20/24 09:12 57 L 17 120/79 98 11/20/24 04:37 98.1 F 50 L 12 105/58 98 11/20/24 02:07 54 L 15 103/67 97 11/20/24 00:06 97.7 F 57 L 16 112/64 97 11/19/24 23:29 55 L 15 122/85 97 11/19/24 22:45 58 L 16 123/82 98 11/19/24 21:35 98.4 F 60 17 134/84 99 Intake and Output 11/19/24 11/20/24 11/20/24 22:59 06:59 14:59 Other: Weight 90.718 kg Head normocephalic Neck supple Lungs diminished bilaterally Heart regular rate and rhythm S1-S2, no rub or gallop Abdomen is soft nontender nondistended positive bowel sounds no hepatosplenomegaly Extremities no edema Neuro alert and orientated to 3 Results CBC & Chem 7: 11/19/24 22:19 11/19/24 22:19 Labs: Abnormal Lab Results - Last 24 Hours (Table) 11/19/24 Range/Units 22:19 Total Protein 6.0 L (6.3-8.2) g/dL Assessment and Plan Assessment: 1. Chest pain with shortness of breath 2. Abnormal CTA showing granulomatous disease with scattered calcified nodules 3. Ongoing nicotine dependence patient educated greater than 3 minutes on the importance of complete smoking cessation 4. Previous history of DVT 4. History of Quick's esophagus 5. History of hyperlipidemia 6. History of COPD 7. History of bipolar depression DVT prophylaxis Lovenox. GI prophylaxis Pepcid. Cardiology and pulmonary services consulted Repeat labs ordered Time with Patient: Greater than 30 (Greater than 60% of the total time spent in counseling and coordination of care)
[2024-11-20 10:51] VITALS: RESP 18
[2024-11-20] MEDS: FAMOTIDINE 20 MG TAB PO SCH (10:52)
[2024-11-20] MEDS: ENOXAPARIN 40 MG/0.4 ML SYRINGE SQ SCH (10:52)
--- NOTE | 2024-11-20 11:37 | US ---
EXAMINATION TYPE: US carotid duplex BILAT DATE OF EXAM: 11/20/2024 COMPARISON: NONE CLINICAL INDICATION: Male, 59 years old with history of dizziness, tingling, r/o stenosis; TECHNIQUE: Grayscale, color Doppler and spectral Doppler evaluation of the bilateral carotid systems and vertebral arteries. Indirect Doppler criteria was utilized. FINDINGS: EXAM MEASUREMENTS: RIGHT: Peak Systolic Velocity (PSV) cm/sec ----- Right CCA: 116.0 ----- Right ICA: 109.0 ----- Right ECA: 139.0 ICA/CCA ratio: 0.9 RIGHT: End Diastole cm/sec ----- Right CCA: 30.8 ----- Right ICA: 27.9 ----- Right ECA: 22.1 LEFT: Peak Systolic Velocity (PSV) cm/sec ----- Left CCA: 101.0 ----- Left ICA: 92.5 ----- Left ECA: 133.0 ICA/CCA ratio: 0.9 LEFT: End Diastole cm/sec ----- Left CCA: 20.5 ----- Left ICA: 22.3 ----- Left ECA: 23.3 VERTEBRALS (direction of flow): Right Vertebral: Antegrade Left Vertebral: Antegrade Rhythm: Normal Cmm Inspector notes: Multiple bilateral thyroid nodules with largest on right measuring 1.6cm and largest on left measur ing 0.9cm Multiple bilateral neck lymph nodes seen with largest on right measuring 1.1cm and largest on left measuring 1.1cm Color Doppler imaging shows patency with blood flow throughout the carotid artery. Spectral waveforms are within normal limits. IMPRESSION: 1. No hemodynamically significant internal carotid artery stenosis on either side. 2. Multiple thyroid nodules measuring up to 1.6 cm. Further dedicated thyroid ultrasound evaluation r ecommended to determine the need for subsequent follow-up or tissue sampling. 3. Some mildly thickened but nonenlarged lymph nodes on both sides of the neck may be reactive/post i nflammatory. Recommend further evaluation at the patient's ultrasound follow-up. Criteria for Assigning % of Stenosis / Diameter reduction (Estimation based on the indirect measurements of the internal carotid artery velocities (ICA PSV). 1. Normal (no stenosis)=ICA PSV < 125 cm/s: ratio < 2.0: ICA EDV<40 cm/s. 2. Less than 50% stenosis=ICA PSV < 125 cm/s: ratio < 2.0: ICA EDV<40 cm/s. 3. 50 to 69% stenosis=ICA PSV of 125 to 230 cm/s: ration 2.0 ? 4.0: ICA EDV 40-100 cm/s. 4. Greater than 70% stenosis to near occlusion= ICA PSV > 230 cm/s: ratio > 4.0: ICA EDV > 100 cm/s. 5. Near occlusion= ICA PSV velocities may be low or undetectable: variable ratio and ICA EDV. 6. Total occlusion=unable to detect flow. [facility], , 11/20/2024 11:35 AM
[2024-11-20] MEDS ORDERED: IPRATROPIUM 0.5 MG/2.5 ML NEBU INHALATION SCH (12:00)
[2024-11-20] MEDS: IBUPROFEN 400 MG TAB PO PRN (13:19)
--- NOTE | 2024-11-20 13:40 | P.CRDCN ---
History of Present Illness History of present illness: HISTORY OF PRESENT ILLNESS: This is a 59-year-old male with a past medical history significant for GERD, hyperlipidemia, anxiety, and chronic pain. Patient follows in the office with Dr. Amos. We have been asked to see the patient in consultation for chest pain. Patient examined at the bedside in the emergency room. It is noted that the patient was hospitalized in July 2024 for chest pain. He underwent an echocardiogram revealing preserved LV systolic function. Patient also underwent stress testing which was negative for ischemia. Patient states he has not been feeling well for the past week. He states he was recently diagnosed with bronchitis. He states yesterday he began to have tingling in both of his arms and felt diaphoretic. He denied having any shortness of breath or chest pain. He does report having some occasional shortness of breath with exertion. He states that he called his brother and was telling him about his symptoms and he told him to come to the emergency room for further evaluation. He continues to deny any chest pain or shortness of breath at the time of examination. He is a current cigarette smoker and smokes 1-1/2 packs/day. He denies any alcohol use. He does report a family history of CAD in his dad. DIAGNOSTICS: - EKG reveals sinus mechanism with baseline artifact. Repeat EKG reveals sinus mechanism with no signs of acute ischemia - Chest CTA: Negative for pulmonary embolism. COPD changes. - Laboratory data: WBC 9.8. Hemoglobin 15.6. Platelet count 206. Sodium 138. Potassium 4.1. BUN 16. Creatinine 0.86. Magnesium 2.2. Troponin negative x 3. - Current home cardiac medications include Lipitor 40 mg daily. - Most recent echocardiogram obtained in July 2024 revealed ejection fraction 55 to 60%, mild pulmonary hypertension, mild TR -Patient underwent stress echocardiogram in July 2024 with no evidence of ischemia at 67% of predicted maximal heart rate. Patient walked for 8 minutes. - Cardiac catheterization history: Denies REVIEW OF SYSTEMS: At the time of my exam: CONSTITUTIONAL: Denies fever or chills. HEENT: Denies blurred vision, vision changes, or eye pain. Denies hemoptysis CARDIOVASCULAR: Denies chest pain. Denies orthopnea. Denies PND. Denies palpitations RESPIRATORY: Denies shortness of breath. GASTROINTESTINAL: Denies abdominal pain. Denies nausea or vomiting. HEMATOLOGIC: Denies bleeding disorders. GENITOURINARY: Denies any blood in urine. SKIN: Denies pruitis. Denies rash. PHYSICAL EXAM: VITAL SIGNS: Reviewed. GENERAL: Well-developed in no acute distress. HEENT: Head is normocephalic. Pupils are equal, round. Sclerae anicteric. Mucous membranes of the mouth are moist. Neck supple. No JVD or thyromegaly LUNGS: Respirations even and unlabored. Lungs essentially clear to auscultation bilaterally. HEART: Regular rate and rhythm. S1 and S2 heard. ABDOMEN: Soft. Nondistended. Nontender. EXTREMITIES: Normal range of motion. No clubbing or cyanosis. Peripheral pulses intact. No lower extremity edema NEUROLOGIC: Awake and alert. Oriented x 3. ASSESSMENT: Chest pain, ruled out, patient denies having any chest pain prior or during hospitalization Recent diagnosis of bronchitis, per patient Tingling of bilateral upper extremities, hyperlipidemia GERD Anxiety History of chronic pain PLAN: An acute coronary event has been ruled out No need to repeat echocardiogram or stress echocardiogram Aziz were both performed in July 2024 Carotid Doppler ordered this morning with no hemodynamically significant internal carotid artery stenosis bilaterally Resume home cardiac medications Patient may be discharged home from a cardiac standpoint We will sign off. Please reconsult if needed. Nurse practitioner note has been reviewed by physician. Signing provider agrees with the documented findings, assessment, and plan of care documented by WORK STATION SUPPORT SPECIALIST as a scribe. Past Medical History Past Medical History: Chest Pain / Angina, COPD, Deep Vein Thrombosis (DVT), GERD/Reflux, Hyperlipidemia, Osteoarthritis (OA) Additional Past Medical History / Comment(s): Hx Quick's Esophagus. , Back and knee pain with multiple surgeries, on scheduled norco for chronic pain History of Any Multi-Drug Resistant Organisms: None Reported Past Surgical History: Orthopedic Surgery Additional Past Surgical History / Comment(s): RIGHT KNEE ARTHROSCOPY, LEFT KNEE SURGERY X2, COLONOSCOPY, EGD. 12/15/19 left neck biopsy to rule out cancer Past Anesthesia/Blood Transfusion Reactions: Previous Problems w/ Anesthesia Additional Past Anesthesia/Blood Transfusion Reaction / Comment(s): WOKE UP DURING SURGERY, CLAUSTROPHOBIC. no previous blood transfusion Past Psychological History: Anxiety, Bipolar, Depression Smoking Status: Current every day smoker Past Alcohol Use History: Rare Past Drug Use History: Marijuana - Past Family History Mother Family Medical History: Cancer Additional Family Medical History / Comment(s): LUNG AND BREAST CANCER Medications and Allergies Home Medications Medication Instructions Recorded Confirmed Type HYDROcodone/APAP 10-325MG [[place] 1 tab PO QID 09/03/16 11/20/24 History 10-325] Albuterol Sulfate [Albuterol 2 puff INHALATION RT-Q6H PRN 11/19/23 11/20/24 History Sulfate Hfa] ALPRAZolam [Xanax] 1 mg PO TID PRN 07/28/24 11/20/24 History Albuterol Nebulized [Ventolin 2.5 mg INHALATION RT-QID PRN 07/28/24 11/20/24 History Nebulized] Atorvastatin [Lipitor] 40 mg PO DAILY 07/28/24 11/20/24 History Fluticasone/Umeclidin/Vilanter 1 puff INHALATION RT-DAILY 07/28/24 11/20/24 History [Trelegy Ellipta 200-62.5-25] Gabapentin 800 mg PO TID PRN 07/28/24 11/20/24 History Loratadine [Claritin] 10 mg PO DAILY 07/28/24 11/20/24 History Nitroglycerin Sl Tabs [Nitrostat] 0.4 mg SUBLINGUAL Q5M PRN 30 Days 07/30/24 11/20/24 Rx #25 tab Omeprazole [PriLOSEC] 20 mg PO DAILY 11/20/24 11/20/24 History buPROPion HCL [Wellbutrin SR] 200 mg PO BID 11/20/24 11/20/24 History carisoprodoL [Soma] 350 mg PO QID PRN 11/20/24 11/20/24 History Allergies Allergy/AdvReac Type Severity Reaction Status Date / Time adhesive tape Allergy Rash/Hives Verified 11/20/24 07:44 latex Allergy Rash/Hives Verified 11/20/24 07:44 Physical Exam Vitals: Vital Signs Temp Pulse Resp BP Pulse Ox 11/20/24 04:37 98.1 F 50 L 12 105/58 98 11/20/24 02:07 54 L 15 103/67 97 11/20/24 00:06 97.7 F 57 L 16 112/64 97 11/19/24 23:29 55 L 15 122/85 97 11/19/24 22:45 58 L 16 123/82 98 11/19/24 21:35 98.4 F 60 17 134/84 99 Intake and Output 11/19/24 11/20/24 11/20/24 22:59 06:59 14:59 Other: Weight 90.718 kg Results 11/19/24 22:19 11/19/24 22:19 Cardiac Enzymes 11/19/24 11/19/24 11/20/24 Range/Units 22:19 22:19 00:51 AST 18 (17-59) U/L Troponin I <0.012 <0.012 (0.000-0.034) ng/mL 11/20/24 Range/Units 04:35 AST (17-59) U/L Troponin I <0.012 (0.000-0.034) ng/mL Coagulation 11/19/24 Range/Units 22:19 PT 11.7 (10.0-12.5) sec APTT 22.0 (22.0-30.0) sec CBC 11/19/24 Range/Units 22:19 WBC 9.8 (3.8-10.6) k/uL RBC 4.87 (4.30-5.90) m/uL Hgb 15.6 (13.0-17.5) gm/dL Hct 46.5 (39.0-53.0) % Plt Count 206 (150-450) k/uL Comprehensive Metabolic Panel 11/19/24 Range/Units 22:19 Sodium 138 (137-145) mmol/L Potassium 4.1 (3.5-5.1) mmol/L Chloride 104 (98-107) mmol/L Carbon Dioxide 27 (22-30) mmol/L BUN 16 (9-20) mg/dL Creatinine 0.86 (0.66-1.25) mg/dL Glucose 84 (74-99) mg/dL Calcium 9.4 (8.4-10.2) mg/dL AST 18 (17-59) U/L ALT 18 (4-49) U/L Alkaline Phosphatase 45 (38-126) U/L Total Protein 6.0 L (6.3-8.2) g/dL Albumin 4.1 (3.5-5.0) g/dL Current Medications Generic Name Dose Route Start Last Admin Trade Name Freq PRN Reason Stop Dose Admin Acetaminophen 650 mg 11/19/24 23:47 11/20/24 03:12 Acetaminophen Tab 325 Mg Tab PO 650 mg Q6HR PRN Administration Mild Pain or Fever > 100.5 Hydrocodone Bitart/Acetaminophen 1 each 11/20/24 00:00 11/20/24 00:03 Hydrocodone/Apap 10-325mg 1 Each Tab PO 1 each QID YULIA Administration Al Hydroxide/Mg Hydroxide 15 ml 11/19/24 23:47 Mag Hydrox/Al Hydrox/Simeth 30 Ml Cup PO Q6HR PRN Indigestion Albuterol Sulfate 2.5 mg 11/19/24 23:51 Albuterol Nebulized 2.5 Mg/3 Ml INHALATION RT-QID PRN Shortness Of Breath Albuterol Sulfate 2.5 mg 11/19/24 23:51 Albuterol Nebulized 2.5 Mg/3 Ml INHALATION RT-Q6H PRN Shortness Of Breath Calcium Carbonate/Glycine 1,000 mg 11/19/24 23:47 Calcium Carbonate 500 Mg Chewable PO Q4HR PRN Dyspepsia Enoxaparin Sodium 40 mg 11/20/24 09:00 Enoxaparin 40 Mg/0.4 Ml Syringe SQ DAILY [facility] Famotidine 20 mg 11/20/24 09:00 Famotidine 20 Mg Tab PO BID [facility] Naloxone HCl 0.2 mg 11/19/24 23:47 Naloxone 0.4 Mg/Ml 1 Ml Vial IV Q2M PRN Opioid Reversal Nicotine 1 patch 11/19/24 23:45 11/20/24 00:04 Nicotine 14mg/24hr Patch TRANSDERM 1 patch DAILY [facility] Administration Nitroglycerin 0.4 mg 11/19/24 23:51 Nitroglycerin Sl Tabs 0.4 Mg Tab SUBLINGUAL Q5M PRN Chest Pain Ondansetron HCl 4 mg 11/19/24 23:47 Ondansetron 4 Mg/2 Ml Vial IVP Q8HR PRN Nausea And Vomiting Intake and Output 11/19/24 11/20/24 11/20/24 22:59 06:59 14:59 Other: Weight 90.718 kg 11/19/24 22:19 11/19/24 22:19
--- NOTE | 2024-11-20 14:15 | P.DS ---
Providers Date of admission: 11/19/24 23:48 Expected date of discharge: 11/20/24 Attending physician: Tamiko Madera Consults: 11/20/24 09:23 Consult Physician Routine Consulting Provider: Shelton King Reason/Comments: abdnormal CTA, previously seen in office Do you want consulting provider notified?: Yes Primary care physician: Di Mccurdy Hospital Course: Diagnosis on discharge: 1. Chest pain with shortness of breath, improved, cardiac testing within normal limits patient was evaluated by cardiology and cleared for discharge 2. Abnormal CTA showing granulomatous disease with scattered calcified nodules 3. Ongoing nicotine dependence patient educated greater than 3 minutes on the importance of complete smoking cessation. 4. History of Quick's esophagus 5. History of hyperlipidemia 6. History of COPD 7. History of bipolar depression 8. Previous history of DVT Hospital course: Daron Matthew is a 59-year-old male patient of Dr. Mccurdy who presented with complaints of chest pain. Patient reports he was on the phone with his brother when he became short of breath with shoulder and chest pain. Patient also reports he has had intermittent episodes of shortness of breath over the past month and was previously seen at [facility]. Patient has a past medical history of ongoing nicotine dependence patient states he smokes 1.5 to 2 packs a day, CAD and previous DVT. EKG completed this bradycardia. Venous Doppler completed showing no evidence for DVT CTA performed showing no evidence for PE. COPD changes. Chronic granulomatous disease with scattered calcified nodules. Lab work showing white blood cell 9.8, hemoglobin 15.6 negative troponins. BNP 34. Current vital signs temp 98.1, heart rate 50, respiratory rate 12, blood pressure 105/58 with a pulse ox of 98% on room air at this time patient will be admitted cardiology and pulmonary services will be consulted. Patient denies chest pain or shortness of breath. Patient denies nausea vomiting or diarrhea. Patient denies any urinary burning or frequency On 11/20/2024 patient was seen and examined on the medical floor, he is alert and oriented x 3 in no apparent distress, his chest pain has resolved and shortness of breath has improved, he was evaluated by cardiology and was cleared for discharge. CT angiogram of the chest was negative for for pulmonary embolism however it revealed chronic granulomatous disease, patient follows with Dr. Fitch as outpatient. Patient will be discharged to home today he will follow-up with his primary care physician Dr. Mccurdy, he will also follow-up with pulmonary and cardiology as outpatient. Patient Condition at Discharge: Stable Plan - Discharge Summary New Discharge Prescriptions: Continue HYDROcodone/APAP 10-325MG [[place] 10-325] 1 tab PO QID Atorvastatin [Lipitor] 40 mg PO DAILY Albuterol Nebulized [Ventolin Nebulized] 2.5 mg INHALATION RT-QID PRN PRN Reason: Shortness Of Breath ALPRAZolam [Xanax] 1 mg PO TID PRN PRN Reason: Anxiety Gabapentin 800 mg PO TID PRN PRN Reason: nerve pain Fluticasone/Umeclidin/Vilanter [Trelegy Ellipta 200-62.5-25] 1 puff INHALATION RT-DAILY Nitroglycerin Sl Tabs [Nitrostat] 0.4 mg SUBLINGUAL Q5M PRN 30 Days #25 tab PRN Reason: Chest Pain Omeprazole [PriLOSEC] 20 mg PO DAILY Loratadine [Claritin] 10 mg PO DAILY carisoprodoL [Soma] 350 mg PO QID PRN PRN Reason: Pain buPROPion HCL [Wellbutrin SR] 200 mg PO BID Discontinued Albuterol Sulfate [Albuterol Sulfate Hfa] 2 puff INHALATION RT-Q6H PRN PRN Reason: Shortness Of Breath Discharge Medication List HYDROcodone/APAP 10-325MG [[place] 10-325] 1 tab PO QID 09/03/16 [History] ALPRAZolam [Xanax] 1 mg PO TID PRN 07/28/24 [History] Albuterol Nebulized [Ventolin Nebulized] 2.5 mg INHALATION RT-QID PRN 07/28/24 [History] Atorvastatin [Lipitor] 40 mg PO DAILY 07/28/24 [History] Fluticasone/Umeclidin/Vilanter [Trelegy Ellipta 200-62.5-25] 1 puff INHALATION RT-DAILY 07/28/24 [History] Gabapentin 800 mg PO TID PRN 07/28/24 [History] Loratadine [Claritin] 10 mg PO DAILY 07/28/24 [History] Nitroglycerin Sl Tabs [Nitrostat] 0.4 mg SUBLINGUAL Q5M PRN 30 Days #25 tab 07/30/24 [Rx] Omeprazole [PriLOSEC] 20 mg PO DAILY 11/20/24 [History] buPROPion HCL [Wellbutrin SR] 200 mg PO BID 11/20/24 [History] carisoprodoL [Soma] 350 mg PO QID PRN 11/20/24 [History] Follow up Appointment(s)/Referral(s): Di Mccurdy MD [Primary Care Provider] - 1-2 days
[2024-11-20 14:54] VITALS: BP 121/88; PULSE 62; TEMP 98.8
[2024-11-20] MEDS ORDERED: SYMBICORT 160-4.5 MCG INHALER INHALATION SCH (20:00)
[2024-11-20] MEDS ORDERED: buPROPion SR 100 MG TABLET.ER PO SCH (21:00)
[2024-11-21] MEDS ORDERED: LORATADINE 10 MG TAB PO SCH (09:00)
[2024-11-21] MEDS ORDERED: ATORVASTATIN 40 MG TAB PO SCH (09:00)
== END 2024-11-20 18:18 | disposition home or self-care (01) ==
LOC: EC 21:34 → 6NMEDSUR 23:48
PROVIDERS: ADMIT Internal Medicine; ATTEND Internal Medicine
DX: R07.9 Chest pain, unspecified (principal); J98.4 Other disorders of lung; I25.10 Atherosclerotic heart disease of native coronary artery without angina pectoris; J44.9 Chronic obstructive pulmonary disease, unspecified; K21.9 Gastro-esophageal reflux disease without esophagitis; E78.5 Hyperlipidemia, unspecified; F31.9 Bipolar disorder, unspecified; R20.2 Paresthesia of skin; F41.9 Anxiety disorder, unspecified; G89.29 Other chronic pain; K22.70 Barrett's esophagus without dysplasia; F17.210 Nicotine dependence, cigarettes, uncomplicated; Z86.718 Personal history of other venous thrombosis and embolism; Z79.51 Long term (current) use of inhaled steroids; Z79.899 Other long term (current) drug therapy; Z91.040 Latex allergy status; Z82.49 Family history of ischemic heart disease and other diseases of the circulatory system
CPT/HCPCS: 96372; 96374; 96375; 99285; 36415; 93005; 83880; 80053; 83690; 83735; 84484 ×2; 85025; 85610; 85730; 93971; 93880; 71275; G0378 ×2; S4990; J2270; J2405; J1650; Q9967

== ENCOUNTER → 2025-01-12 | Outpatient (CLI) | payer MEDICARE, OTHER | LOC: CPPFTMAIN 10:41 | PROVIDERS: ATTEND Internal Medicine Critical Care Medicine | DX: J44.9 Chronic obstructive pulmonary disease, unspecified (principal); F12.90 Cannabis use, unspecified, uncomplicated; F17.210 Nicotine dependence, cigarettes, uncomplicated; Z91.040 Latex allergy status; Z91.048 Other nonmedicinal substance allergy status | CPT/HCPCS: 94060; 94726; 94729 ==